=== PATIENT | male | born 1945 | race Caucasian/White ===

== ENCOUNTER 2016-11-25 13:33 | Inpatient (IN) | payer OTHER, MEDICARE ==
[~2016-11-25] VITALS: Ht 177.8 cm; Wt 91.0 kg
[~2016-11-25 13:33] MED LIST: ASPI81TA28 PO; ATV1 PO; CARB25TA12 PO; MULT-506 PO; OXYC-57 PO; OYST500T47 PO; RASA1TAB PO; ROPI2TAB6 PO
[2016-11-25 15:10] LABS: BASO % 0.4 %; BASO ABS # 0.04 K/uL (0-0.2); COMPLETE YES; EOS % 0.5 %; IG% 0.2 %; LYMPH % 14.6 %; MEAN CELL VOLUME 85.7 fL (80-100); MEAN CORPUSCULAR HEMOGLOBIN 30.1 pg (25-34); MEAN CORPUSCULAR HGB CONC 35.1 g/dl (32-36); MONO % 7.9 %; NEUT % 76.4 %; PLATELET COUNT 223 K/uL (130-400); RED BLOOD COUNT 5.02 M/uL (4.7-6.1); WHITE BLOOD COUNT 9.62 K/uL (4.8-10.8)
--- NOTE | 2016-11-25 15:27 | DIAGNOSTIC IMAGING REPORT ---
SINGLE VIEW CHEST CLINICAL HISTORY: Fall. FINDINGS: An AP, portable, upright chest radiograph is compared to study dated 01/19/2014. The examination is degraded by portable technique, patient rotation, and by the patient's head obscuring the right apex. The heart is enlarged and there is atherosclerotic calcification of the thoracic aorta. The pulmonary vasculature is noncongested. Mild emphysema is suspected and chronic interstitial thickening is unchanged. No airspace consolidation, pleural effusion, or pneumothorax is seen. The skeletal structures are osteopenic. The bony thorax is grossly intact. Degenerative change is noted throughout the thoracic spine. IMPRESSION: Cardiomegaly with no acute cardiopulmonary abnormality. Electronically signed by: Tj Troncoso M.D. 11/25/2016 3:26 PM
[2016-11-25 15:29] LABS: BUN/CREATININE RATIO 23.5 (10-20); CREATININE 0.82 mg/dl (0.60-1.40); POTASSIUM 3.6 mmol/L (3.5-5.1)
--- NOTE | 2016-11-25 15:29 | DIAGNOSTIC IMAGING REPORT ---
RIGHT SHOULDER MIN 2 VIEWS ROUTINE CLINICAL HISTORY: Right shoulder pain following fall. COMPARISON: None FINDINGS: This exam was compromised by difficulty with positioning. No acute fracture of the proximal right humerus is identified. There is an equivocal minimally displaced fracture of the coracoid. Alignment is anatomic. There is moderate arthritis. IMPRESSION: Equivocal minimally displaced scapular fracture involving the coracoid process. This may be artifactual. Electronically signed by: Vicente Duran M.D. 11/25/2016 3:27 PM
[2016-11-25 15:44] LABS: THYROID STIMULATING HORMONE 1.06 uIu/ml (0.300-4.500)
--- NOTE | 2016-11-25 15:46 | DIAGNOSTIC IMAGING REPORT ---
RIGHT ANKLE MIN 3 VIEWS ROUTINE CLINICAL HISTORY: Right ankle pain following fall. COMPARISON: None FINDINGS: Alignment of the right ankle is anatomic. No acute fracture is identified. Irregularity of the medial malleolus suggests old injury. There is moderate lateral ankle soft tissue swelling. IMPRESSION: 1. No acute fracture or dislocation of the right ankle. 2. Moderate lateral ankle soft tissue swelling. Electronically signed by: Vicente Duran M.D. 11/25/2016 3:44 PM
[2016-11-25 15:53] LABS: URINE APPEARANCE CLEAR (CLEAR); URINE BILIRUBIN NEG (NEG); URINE COLOR YELLOW; URINE NITRITE NEG (NEG); URINE SPECIFIC GRAVITY 1.023 (1.000-1.030); UROBILINOGEN NEG (NEG)
[2016-11-25 15:55] LABS: MANUAL MICROSCOPIC REQUIRED? NO; REVIEW REQ? NO
--- NOTE | 2016-11-25 16:00 | DIAGNOSTIC IMAGING REPORT ---
CT SCAN OF THE BRAIN WITHOUT IV CONTRAST CLINICAL HISTORY: Trauma. Fall. COMPARISON STUDY: No priors. TECHNIQUE: Unenhanced axial CT scan of the brain is performed from the vertex to the skull base. CT DOSE: 1365.40 mGy.cm FINDINGS: Brain parenchyma: There are age-related involutional changes noting moderate subcortical and periventricular microangiopathic change. There is no hemorrhage, mass effect, or evidence of acute territorial ischemia by CT criteria. Mcclain-white matter is preserved. No extra-axial fluid collection is seen. Ventricles, sulci, cisterns: Prominent secondary to involutional change. Intracranial vasculature: There is atherosclerotic calcification of the cavernous carotid and vertebral arteries. There is mild dolichoectasia of the basilar artery. Calvarium: The skeletal structures are osteopenic. There is no depressed calvarial fracture. Sinuses and mastoids: The visualized paranasal sinuses are clear. The mastoid air cells are well pneumatized. Orbits: The bony orbits are grossly intact. IMPRESSION: There is no hemorrhage, mass effect, or evidence of acute territorial ischemia by CT criteria. Electronically signed by: Tj Troncoso M.D. 11/25/2016 3:58 PM
--- NOTE | 2016-11-25 16:00 | DIAGNOSTIC IMAGING REPORT ---
CT OF THE CERVICAL SPINE CLINICAL HISTORY: Neck pain status post trauma COMPARISON STUDY: No previous studies for comparison. CT DOSE: TECHNIQUE: CT scan of the cervical spine was performed from the skull base to the thoracic inlet. Images are reviewed in the axial, sagittal, and coronal planes. IV contrast was not administered for this examination. FINDINGS: The visualized portions of the lung apices reveal no evidence of pneumothorax. The prevertebral soft tissues are normal. No fractures or subluxations are visualized. There is a cervical levoscoliosis. There are multilevel degenerative changes IMPRESSION: No evidence of acute fracture or traumatic subluxation. Electronically signed by: Rodríguez Watson M.D. 11/25/2016 3:58 PM
[2016-11-25] MEDS ORDERED: CYAN10004 PO (16:01)
[2016-11-25] MEDS ORDERED: GALA4TAB11 PO (16:01)
[2016-11-25] MEDS ORDERED: THIA100T11 PO (16:01)
[2016-11-25] MEDS ORDERED: SERT50TA PO (16:02)
[2016-11-25] MEDS ORDERED: QUET1TAB30 PO (16:03)
[2016-11-25] MEDS ORDERED: ACETAMINOPHEN 325 MG TAB PO PRN (17:30)
[2016-11-25] MEDS ORDERED: AMMONIUM LACTATE 12% LOTION 225 GM BTL EXT PRN (17:30)
[2016-11-25] MEDS ORDERED: ONDANSETRON INJ 2 MG/ML 2 ML VIAL IV PRN (17:30)
[2016-11-25] MEDS ORDERED: LACT1LOT3 EXT (17:30)
--- NOTE | 2016-11-25 18:09 | History and Physical ---
History & Physical Date & Time of Service: Nov 25, 2016 at 17:32 Chief Complaint: Back Pain Primary Care Physician: Zak Barlow M.D. History of Present Illness Source: patient, family (daughter at bedside), clinic records This is a 71 year old male with PMH of Parkinson's variant, possibly progressive supranuclear palsy, Lewy body dementia, depression, and other problems listed below who presents to the ED for multiple falls. Patient's daughter at bedside states patient fell 4x in past 1 week. He fell on 11/19 witnessed by his daughter due to his chair giving out under him and hit the back of his head. He then fell once yesterday and 2x early this morning. Patient unable to describe what happened. Daughter did not witness these falls. Pt ambulates with cane or walker at home. He has been generally weak. After the recent falls he has pain in occipital head, right shoulder, right ankle. No other areas of pain. Daughter notes patient has been awake for past 36 hours. He has been having hallucinations of people in the room frequently during this time, while before this was only occasional. He has been agitated at times. He was having reportedly having suicidal ideations recently but denies this currently. As per his baseline patient has poor short term memory. At baseline he is oriented to person and date but not to place- no change. Patient states he is here because "my body is all screwed up". Daughter states he has been eating well at home but does not drink much fluids. No focal weakness, numbness , facial droop, change in speech- has baseline mumbling speech. Has intention tremor. No recent fever, chills, URI symptoms, chest pain, SOB, GI complaints. He recently finished amoxicillin for UTI on FridayNov 22. Not having urinary complaints over past few days. Seroquel 25 mg HS was recently added approx [address] Reed. Daughter called Dr. Reed today and was advised to present to ER. Past Medical/Surgical History Medical Problems: (1) Depression Status: Chronic (2) History of DVT (deep vein thrombosis) Permanent Comment: provoked by surgery Status: Chronic (3) History of pulmonary embolism Permanent Comment: provoked by surgery Status: Chronic (4) Lewy body dementia Status: Chronic Surgical Problems: (1) H/O colonoscopy Status: Chronic (2) S/P lumbar fusion Status: Chronic Family History Diabetes mellitus SISTER Hypertension MOTHER TIAs MOTHER Social History Smoking Status: Former Smoker (quit 1975) Alcohol Use: none Housing status: lives with family (with and daughter) Allergies Coded Allergies: Pramipexole (Unverified Allergy, Severe, delirium, 11/25/16) No Known Drug Allergy (Verified Allergy, Unknown, ., 02/01/14) Home Medications Scheduled Aspirin (Aspirin Ec), 81 MG PO QAM Carbidopa/Levodopa (Sinemet 25MG/100MG), 1 TAB PO QID Cyanocobalamin (Vitamin B-12 1000 Mcg), 1,000 MCG PO DAILY Galantamine Hydrobromide (Razadyne), 4 MG PO HS Quetiapine Fumarate (Seroquel), 25 MG PO HS Sertraline (Zoloft), 50 MG PO DAILY Thiamine Hcl (Vitamin B-1), 100 MG PO DAILY Scheduled PRN Lactic Acid (Ammonium Lactate) (Amlactin), 1 APPLN EXT BID PRN for DRYNESS Review of Systems Constitutional: + weakness (generalized), No chills, No fever ENT: No nasal symptoms Respiratory: No cough, No shortness of breath Cardiovascular: No chest pain Abdomen: + problem reported (bowel incontinence), No diarrhea, No nausea, No pain, No vomiting Musculoskeletal: + joint pain (right shoulder, right ankle- new. chronic low back pain. ) Genitourinary - Male: No dysuria, No urinary frequency, No urinary urgency Neurologic: + memory loss (chronic), + problem reported (+ headache. + frequent falls. no facial droop, no change in speech. ), + weakness (generalized ), No numbness/tingling Psychiatric: + depression symptoms, + insomnia, + problem reported (agitation on and off, recent suicidal ideation) Hematologic / Lymphatic: + problem reported (bruises easily) Integumentary: + problem reported (healing skin tear to left elbow) Physical Exam Vital Signs Date Time Temp Pulse Resp B/P Pulse Ox O2 Delivery O2 Flow Rate FiO2 11/25/16 16:21 71 16 132/79 96 Room Air 11/25/16 15:32 96 Room Air 11/25/16 15:30 68 16 141/81 97 Room Air 11/25/16 15:06 81 138/82 69 149/76 86 137/83 11/25/16 13:41 36.7 69 16 141/80 96 Room Air 11/25/16 13:39 69 General Appearance: WD/WN, no apparent distress Head: normocephalic, atraumatic Eyes: normal inspection, PERRL, EOMI ENT: hearing grossly normal, pharynx normal Neck: supple Respiratory/Chest: lungs clear, normal breath sounds, no respiratory distress Cardiovascular: regular rate, rhythm, no murmur Abdomen/GI: normal bowel sounds, non tender, soft Extremities/Musculoskelatal: no calf tenderness, no pedal edema, + pertinent finding (+ rigidity of extremities. + painful ROM of right shoulder and right ankle. ) Neurologic/Psych: alert, + pertinent finding (oriented to person and date, mildly disoriented to place (states we are at [facility]), attention is normal, short term memory is poor. has masked facies. eyebrow raise and smile symmetric. tremor with intentional movement. production potter strength 5/5 bilat. generally weak in biliateral legs strenght 2-4/5. ) Skin: normal color, warm/dry, + pertinent finding (scabbed skin tear left elbow. no appreciable rashes or bruises. ) Diagnostics Laboratory Results Results Past 24 Hours Test 11/25/16 14:54 11/25/16 14:56 11/25/16 15:17 Range/Units Bedside Glucose 82 70-99 mg/dl White Blood Count 9.62 4.8-10.8 K/uL Red Blood Count 5.02 4.7-6.1 M/uL Hemoglobin 15.1 14.0-18.0 g/dL Hematocrit 43.0 42-52 % Mean Corpuscular Volume 85.7 80-100 fL Mean Corpuscular Hemoglobin 30.1 25-34 pg Mean Corpuscular Hemoglobin Concent 35.1 32-36 g/dl Platelet Count 223 130-400 K/uL Mean Platelet Volume 10.0 7.4-10.4 fL Neutrophils (%) (Auto) 76.4 % Lymphocytes (%) (Auto) 14.6 % Monocytes (%) (Auto) 7.9 % Eosinophils (%) (Auto) 0.5 % Basophils (%) (Auto) 0.4 % Neutrophils # (Auto) 7.35 1.4-6.5 K/uL Lymphocytes # (Auto) 1.40 1.2-3.4 K/uL Monocytes # (Auto) 0.76 0.11-0.59 K/uL Eosinophils # (Auto) 0.05 0-0.5 K/uL Basophils # (Auto) 0.04 0-0.2 K/uL RDW Standard Deviation 39.2 36.4-46.3 fL RDW Coefficient of Variation 12.5 11.5-14.5 % Immature Granulocyte % (Auto) 0.2 % Immature Granulocyte # (Auto) 0.02 0.00-0.02 K/uL Sodium Level 142 136-145 mmol/L Potassium Level 3.6 3.5-5.1 mmol/L Chloride Level 106 98-107 mmol/L Carbon Dioxide Level 25 21-32 mmol/L Anion Gap 11.0 3-11 mmol/L Blood Urea Nitrogen 19 7-18 mg/dl Creatinine 0.82 0.60-1.40 mg/dl Est Creatinine Clear Calc Drug Dose 92.3 ml/min Estimated GFR () 102.4 Estimated GFR (Non- 88.3 BUN/Creatinine Ratio 23.5 10-20 Random Glucose 78 70-99 mg/dl Calcium Level 9.0 8.5-10.1 mg/dl Total Bilirubin 1.2 0.2-1 mg/dl Direct Bilirubin 0.2 0-0.2 mg/dl Aspartate Amino Transf (AST/SGOT) 32 15-37 U/L Alanine Aminotransferase (ALT/SGPT) 10 12-78 U/L Alkaline Phosphatase 118 45-117 U/L Total Protein 7.2 6.4-8.2 gm/dl Albumin 4.0 3.4-5.0 gm/dl Thyroid Stimulating Hormone (TSH) 1.060 0.300-4.500 uIu/ml Urine Color YELLOW Urine Appearance CLEAR CLEAR Urine pH 5.0 4.5-7.5 Urine Specific [place]in 1.023 1.000-1.030 Urine Protein NEG NEG Urine Glucose (UA) NEG NEG Urine Ketones 1+ NEG Urine Occult Blood NEG NEG Urine Nitrite NEG NEG Urine Bilirubin NEG NEG Urine Urobilinogen NEG NEG Urine Leukocyte Esterase NEG NEG Diagnostic Radiology RIGHT SHOULDER MIN 2 VIEWS ROUTINE CLINICAL HISTORY: Right shoulder pain following fall. COMPARISON: None FINDINGS: This exam was compromised by difficulty with positioning. No acute fracture of the proximal right humerus is identified. There is an equivocal minimally displaced fracture of the coracoid. Alignment is anatomic. There is moderate arthritis. IMPRESSION: Equivocal minimally displaced scapular fracture involving the coracoid process. This may be artifactual. CT SCAN OF THE BRAIN WITHOUT IV CONTRAST CLINICAL HISTORY: Trauma. Fall. COMPARISON STUDY: No priors. TECHNIQUE: Unenhanced axial CT scan of the brain is performed from the vertex to the skull base. CT DOSE: 1365.40 mGy.cm FINDINGS: Brain parenchyma: There are age-related involutional changes noting moderate subcortical and periventricular microangiopathic change. There is no hemorrhage, mass effect, or evidence of acute territorial ischemia by CT criteria. Mcclain-white matter is preserved. No extra-axial fluid collection is seen. Ventricles, sulci, cisterns: Prominent secondary to involutional change. Intracranial vasculature: There is atherosclerotic calcification of the cavernous carotid and vertebral arteries. There is mild dolichoectasia of the basilar artery. Calvarium: The skeletal structures are osteopenic. There is no depressed calvarial fracture. Sinuses and mastoids: The visualized paranasal sinuses are clear. The mastoid air cells are well pneumatized. Orbits: The bony orbits are grossly intact. IMPRESSION: There is no hemorrhage, mass effect, or evidence of acute territorial ischemia by CT criteria. CT OF THE CERVICAL SPINE CLINICAL HISTORY: Neck pain status post trauma COMPARISON STUDY: No previous studies for comparison. CT DOSE: TECHNIQUE: CT scan of the cervical spine was performed from the skull base to the thoracic inlet. Images are reviewed in the axial, sagittal, and coronal planes. IV contrast was not administered for this examination. FINDINGS: The visualized portions of the lung apices reveal no evidence of pneumothorax. The prevertebral soft tissues are normal. No fractures or subluxations are visualized. There is a cervical levoscoliosis. There are multilevel degenerative changes IMPRESSION: No evidence of acute fracture or traumatic subluxation. RIGHT ANKLE MIN 3 VIEWS ROUTINE CLINICAL HISTORY: Right ankle pain following fall. COMPARISON: None FINDINGS: Alignment of the right ankle is anatomic. No acute fracture is identified. Irregularity of the medial malleolus suggests old injury. There is moderate lateral ankle soft tissue swelling. IMPRESSION: 1. No acute fracture or dislocation of the right ankle. 2. Moderate lateral ankle soft tissue swelling. SINGLE VIEW CHEST CLINICAL HISTORY: Fall. FINDINGS: An AP, portable, upright chest radiograph is compared to study dated 01/19/2014. The examination is degraded by portable technique, patient rotation, and by the patient's head obscuring the right apex. The heart is enlarged and there is atherosclerotic calcification of the thoracic aorta. The pulmonary vasculature is noncongested. Mild emphysema is suspected and chronic interstitial thickening is unchanged. No airspace consolidation, pleural effusion, or pneumothorax is seen. The skeletal structures are osteopenic. The bony thorax is grossly intact. Degenerative change is noted throughout the thoracic spine. IMPRESSION: Cardiomegaly with no acute cardiopulmonary abnormality. EKG NSR, no ST or T wave abnormalities, [id number] Impression Assessment and Plan MULTIPLE FALLS Likely mechanical falls due to underlying Parkinsonism Labs are essentially unremarkable; no evidence for infection- CXR- no infiltrate , UA- not infected CT head- no acute findings; CT c-spine- no fx or subluxation, right shoulder x- ray- ? minimally displaced scapular fx involving coracoid process vs. artifactual finding; right ankle x-ray- no fx or dislocation, + moderate lateral soft tissue swelling- will do ice packs Check CT of right shoulder to further assess for scapular fx PT and OT evaluations Fall precautions Consult neurology- Dr. Reed aware DEPRESSION/ HALLUCINATIONS/ AGITATION RECENT SUICIDAL IDEATION One to one sitter On Seroquel, sertraline Consult psychiatry for medication adjustments PARKINSON'S VARIANT Continue Sinemet LEWY BODY DEMENTIA Continue galantamine CODE STATUS Full code- discussed with patient and daughter. Would not want prolonged life support. DVT PROPHYLAXIS Lovenox SQ DISPO Lives at home with / daughter. Daughter expressed interest in placement at Parkinson's unit at [facility]. PT/OT and web content & social media manager consulted. Patient seen in collaboration with Dr. Farfan. Please see his addendum. Attending Addendum: The patient was seen and examined in ER in presence of the Daughter Came in with frequent falls and hallucinations Denies any acute pain,sob O/E No acute distress HEENT-Unremarkable Chest-decreased breath sound bilaterally Heart-regular Abdomen-benign,no masses,bowel sound present Extremities-trace edema bilaterally HOT TOP LINER-minimal tremors of the hands Generally weak and Lethargic Labs and Imaging studies were reviewed R/O right scapular fracture Agree with the assessment and plan Dr Juan Ramon Farfan VTE Prophylaxis VTE Risk Assessment Done? Y/N: Yes Risk Level: High
--- NOTE | 2016-11-25 18:29 | EMERGENCY ROOM VISIT NOTE ---
History Report prepared by Vidhiibheather: Stephany Bee Under the Supervision of: Dr. Bhanu Brown D.O. First contact with patient: 14:15 Chief Complaint: FALL Stated Complaint: BACK PAIN History of Present Illness The patient is a 71 year old male who presents to the Emergency Room with complaints of worsening falls recently. He is accompanied by his son and daughter. They report he has fallen four times in the past two days. Yesterday he fell three times, and then fell again once prior to arrival. The patient has a history of dementia and Parkinson's and his neurological health has been on the decline recently. He admits to some back pain after his recent falls, as well as right shoulder and elbow pain. He notes he does have chronic back pain and has undergone spinal fusion surgery. He just finished Amoxicillin 3 days ago for UTI symptoms. The patient denies any headache, change in vision, fevers , chest pain, shortness of breath, nausea, vomiting, diarrhea, pain with urination, and melena. His daughter reports last week "he had a very bad day" and became very angry with her Mother, the patient's . She also states the patient "sees things all of the time". She reports he sees people who are not there every single day. The patient denies any current suicidal or homicidal ideation. 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 A total of 10 systems reviewed and were otherwise negative. Past Medical & Surgical Medical Problems: (1) Dementia (2) Depression (3) Falls (4) Hallucinations (5) History of DVT (deep vein thrombosis) (6) History of pulmonary embolism (7) Lewy body dementia (8) Parkinson disease Surgical Problems: (1) H/O colonoscopy (2) S/P lumbar fusion Social History Smoking Status: Former Smoker Drug Use: none Marital Status: Housing Status: lives with family Occupation Status: retired Current/Historical Medications Scheduled Aspirin (Aspirin Ec), 81 MG PO QAM Carbidopa/Levodopa (Sinemet 25MG/100MG), 1 TAB PO QID Cyanocobalamin (Vitamin B-12 1000 Mcg), 1,000 MCG PO DAILY Galantamine Hydrobromide (Razadyne), 4 MG PO HS Quetiapine Fumarate (Seroquel), 25 MG PO HS Sertraline (Zoloft), 50 MG PO DAILY Thiamine Hcl (Vitamin B-1), 100 MG PO DAILY Scheduled PRN Lactic Acid (Ammonium Lactate) (Amlactin), 1 APPLN EXT BID PRN for DRYNESS Allergies Coded Allergies: Pramipexole (Unverified Allergy, Severe, delirium, 11/25/16) No Known Drug Allergy (Verified Allergy, Unknown, ., 02/01/14) Physical Exam Vital Signs Date Time Temp Pulse Resp B/P Pulse Ox O2 Delivery O2 Flow Rate FiO2 11/25/16 16:21 71 16 132/79 96 Room Air 11/25/16 15:32 96 Room Air 11/25/16 15:30 68 16 141/81 97 Room Air 11/25/16 15:06 81 138/82 69 149/76 86 137/83 11/25/16 13:41 36.7 69 16 141/80 96 Room Air 11/25/16 13:39 69 Physical Exam GENERAL: Patient is alert, chronically ill-appearing, disheveled, well nourished , no acute distress, non-toxic EYE EXAM: normal conjunctiva, PERRL and EOM's intact OROPHARYNX: no exudate, no erythema, lips, buccal mucosa, and tongue normal and mucous membranes are moist NECK: supple, no nuchal rigidity, no adenopathy, non-tender LUNGS: Clear to auscultation. Normal chest wall mechanics HEART: no murmurs, S1 normal and S2 normal ABDOMEN: abdomen soft, non-tender, normo-active bowel sounds, no masses, no rebound or guarding. BACK: Back is symmetrical on inspection and there is no deformity, no midline tenderness, no CVA tenderness. CHEST: Stable to compression anteriorly and posteriorly. SKIN: no rashes and no bruising UPPER EXTREMITIES: Mild tenderness over the right shoulder, without bruising, skin is intact, minimal full active and passive ROM of bilateral wrists, elbows and shoulders. LOWER EXTREMITIES: Rigidity with minimal motion in hips, knees and ankles. No pitting edema. NEURO EXAM: Patient is alert, soft spoken, slow to respond, no obvious tremor, denies SI or HI. Medical Decision & Procedures ER Provider Diagnostic Interpretation: These CT scans were reviewed and interpreted by the radiologist and reviewed by myself. CT OF THE CERVICAL SPINE IMPRESSION: No evidence of acute fracture or traumatic subluxation. Electronically signed by: Rodríguez Watson M.D. 11/25/2016 3:[address] SCAN OF THE BRAIN WITHOUT IV CONTRAST IMPRESSION: There is no hemorrhage, mass effect, or evidence of acute territorial ischemia by CT criteria. Electronically signed by: Tj Troncoso M.D. 11/25/2016 3:58 PM These X-Rays were reviewed and interpreted by myself and the radiologist. SINGLE VIEW CHEST IMPRESSION: Cardiomegaly with no acute cardiopulmonary abnormality. Electronically signed by: Tj Troncoso M.D. 11/25/2016 3:26 PM RIGHT ANKLE MIN 3 VIEWS ROUTINE IMPRESSION: 1. No acute fracture or dislocation of the right ankle. 2. Moderate lateral ankle soft tissue swelling. Electronically signed by: Vicente Duran M.D. 11/25/2016 3:44 PM RIGHT SHOULDER MIN 2 VIEWS ROUTINE IMPRESSION: Equivocal minimally displaced scapular fracture involving the coracoid process. This may be artifactual. Electronically signed by: Vicente Duran M.D. 11/25/2016 3:27 PM Laboratory Results 11/25/16 14:56 Red Blood Count 5.02, Mean Corpuscular Volume 85.7, Mean Corpuscular Hemoglobin 30.1, Mean Corpuscular Hemoglobin Concent 35.1, Mean Platelet Volume 10.0, Neutrophils (%) (Auto) 76.4, Lymphocytes (%) (Auto) 14.6, Monocytes (%) (Auto) 7.9, Eosinophils (%) (Auto) 0.5, Basophils (%) (Auto) 0.4, Neutrophils # (Auto) 7.35, Lymphocytes # (Auto) 1.40, Monocytes # (Auto) 0.76, Eosinophils # (Auto) 0.05, Basophils # (Auto) 0.04 11/25/16 14:56 Test 11/25/16 14:54 11/25/16 14:56 11/25/16 15:17 Bedside Glucose 82 mg/dl (70-99) White Blood Count 9.62 K/uL (4.8-10.8) Red Blood Count 5.02 M/uL (4.7-6.1) Hemoglobin 15.1 g/dL (14.0-18.0) Hematocrit 43.0 % (42-52) Mean Corpuscular Volume 85.7 fL (80-100) Mean Corpuscular Hemoglobin 30.1 pg (25-34) Mean Corpuscular Hemoglobin Concent 35.1 g/dl (32-36) Platelet Count 223 K/uL (130-400) Mean Platelet Volume 10.0 fL (7.4-10.4) Neutrophils (%) (Auto) 76.4 % Lymphocytes (%) (Auto) 14.6 % Monocytes (%) (Auto) 7.9 % Eosinophils (%) (Auto) 0.5 % Basophils (%) (Auto) 0.4 % Neutrophils # (Auto) 7.35 K/uL (1.4-6.5) Lymphocytes # (Auto) 1.40 K/uL (1.2-3.4) Monocytes # (Auto) 0.76 K/uL (0.11-0.59) Eosinophils # (Auto) 0.05 K/uL (0-0.5) Basophils # (Auto) 0.04 K/uL (0-0.2) RDW Standard Deviation 39.2 fL (36.4-46.3) RDW Coefficient of Variation 12.5 % (11.5-14.5) Immature Granulocyte % (Auto) 0.2 % Immature Granulocyte # (Auto) 0.02 K/uL (0.00-0.02) Anion Gap 11.0 mmol/L (3-11) Est Creatinine Clear Calc Drug Dose 92.3 ml/min Estimated GFR () 102.4 Estimated GFR (Non- 88.3 BUN/Creatinine Ratio 23.5 (10-20) Calcium Level 9.0 mg/dl (8.5-10.1) Total Bilirubin 1.2 mg/dl (0.2-1) Direct Bilirubin 0.2 mg/dl (0-0.2) Aspartate Amino Transf (AST/SGOT) 32 U/L (15-37) Alanine Aminotransferase (ALT/SGPT) 10 U/L (12-78) Alkaline Phosphatase 118 U/L (45-117) Total Protein 7.2 gm/dl (6.4-8.2) Albumin 4.0 gm/dl (3.4-5.0) Thyroid Stimulating Hormone (TSH) 1.060 uIu/ml (0.300-4.500) Urine Color YELLOW Urine Appearance CLEAR (CLEAR) Urine pH 5.0 (4.5-7.5) Urine Specific [place] 1.023 (1.000-1.030) Urine Protein NEG (NEG) Urine Glucose (UA) NEG (NEG) Urine Ketones 1+ (NEG) Urine Occult Blood NEG (NEG) Urine Nitrite NEG (NEG) Urine Bilirubin NEG (NEG) Urine Urobilinogen NEG (NEG) Urine Leukocyte Esterase NEG (NEG) Laboratory results per my review. ECG Indication: back/shoulder pain Rate (beats per minute): 67 Rhythm: sinus rhythm Findings: left axis deviation, no ectopy ED Course ED COURSE: Vital signs were reviewed and showed normal vital signs. The patients medical record was reviewed The above diagnostic studies were performed and reviewed. ED treatments and interventions as stated above. 1424: The patient was evaluated in room C2. A complete history and physical examination was performed. 1623: I discussed the patient's case with Kalpana Turner PA-C, [facility] Hospitalist. The patient will be further evaluated. 1630: Upon reevaluation, the patient is resting comfortably. I discussed my findings with the patient and he understands and agrees with the treatment plan. Based on the patients age, coexisting illnesses, exam and lab findings the decision to treat as an inpatient was made. The patient remained stable while under my care. The patient will be evaluated for further management. Medical Decision Differential Diagnosis includes but is not limited to dehydration, stroke, anemia, hypoglycemia, hyponatremia, hypernatremia, urinary tract infection, pneumonia, bronchitis, sepsis, gastroenteritis, additional abdominal pathology, metabolic abnormalities and infections. Patient is a 71-year-old male who presents the ER for multiple falls referred in by neurology. He is a history of Parkinson's disease and has made some suicidal ideations this past week. Patient denies any suicidal or homicidal ideations. CBC along with BMP, LFTs, bilirubin and TSH are unremarkable. Patient does have rigidity on exam but is otherwise neurologically intact. CT head was negative. CT of the cervical spine is unremarkable. X-rays of the right shoulder show a coracoid process fracture. Patient family were updated bedside. Family feels as though they can't take care of him at home. I do favor he'll benefit from rehabilitation. Patient was evaluated by the hospitalist service and will be worked up as an inpatient for his ambulatory dysfunction. Consults Time Called: 1620 Consulting Physician: Kalpana Turner PA-C, [facility] Returned Call: 1623 I discussed the patient's case with Kalpana Turner PA-C, [facility]. The patient will be further evaluated. Impression Primary Impression: Weakness Additional Impressions: Recurrent falls, Ambulatory dysfunction Scribe Attestation The scribe's documentation has been prepared under my direction and personally reviewed by me in its entirety. I confirm that the note above accurately reflects all work, treatment, procedures, and medical decision making performed by me. Departure Information Dispostion Being Evaluated By Hospitalist Referrals Zee Ackerman (PCP) Patient Instructions A Signature Page, My [facility]
[2016-11-25 18:30] VITALS: O2SAT 97; Ht 177.8 cm; Wt 91.0 kg
[2016-11-25 18:33] VITALS: BP 133/78; PULSE 61; TEMP 36.2; O2SAT 97
[2016-11-25] MEDS ORDERED: IV FLUIDS COMPLETED PRN (19:15)
[2016-11-25] MEDS: ENOXAPARIN 40 MG/0.4 ML SYR SQ SCH (20:38)
[2016-11-25] MEDS: QUETIAPINE FUMARATE 25 MG TAB PO SCH (20:39)
[2016-11-25] MEDS: CARBIDOPA/LEVODOPA 25/100MG TAB PO SCH (20:40)
[2016-11-25] MEDS ORDERED: PNEUMOCOCCAL ADMINISTRATION CHARGE ONE (21:00)
[2016-11-25] MEDS ORDERED: PNEUMOCOCCAL POLYSACCHARIDES 25 MCG/0.5 ML VIAL/SYR IM. ONE (21:00)
[2016-11-25] MEDS ORDERED: GALANTAMINE HYDROBROMIDE 4 MG TAB PO SCH (21:00)
[2016-11-25] MEDS ORDERED: INFLUENZA ADMINISTRATION CHARGE ONE (21:00)
[2016-11-25] MEDS ORDERED: INFLUENZA VIRUS QUAD VACCINE 0.5 ML SYR IM. ONE (21:00)
--- NOTE | 2016-11-25 21:32 | DIAGNOSTIC IMAGING REPORT ---
CT OF THE RIGHT SCAPULA/SHOULDER CT DOSE: 1289.80 mGy.cm HISTORY: Abnormal shoulder series possible right scapular fracture on x-ray Right TECHNIQUE: Multiaxial CT images of the right shoulder were performed and reformatted in the sagittal and coronal plane without the use of contrast. COMPARISON: None. FINDINGS: Moderate generalized degenerative change. No evidence for acute fracture or dislocation. Plain film findings appear to be artifactual. IMPRESSION: Moderate degenerative change. No acute bony abnormality. Routine film finding appears to be secondary to overlap artifact. Electronically signed by: Russell Hollingsworth M.D. 11/25/2016 9:30 PM
[2016-11-25 22:51] VITALS: BP 127/68; PULSE 91; TEMP 36.3; O2SAT 92
[2016-11-26 07:37] LABS: HEMATOCRIT 39.1 % (42-52); MEAN CELL VOLUME 87.5 fL (80-100); MEAN CORPUSCULAR HEMOGLOBIN 29.8 pg (25-34); MEAN PLATELET VOLUME 10.5 fL (7.4-10.4); PLATELET COUNT 200 K/uL (130-400); RED BLOOD COUNT 4.47 M/uL (4.7-6.1); WHITE BLOOD COUNT 5.92 K/uL (4.8-10.8)
[2016-11-26 08:05] LABS: BUN/CREATININE RATIO 23.8 (10-20); CALCIUM 8.6 mg/dl (8.5-10.1); CREATININE 0.86 mg/dl (0.60-1.40); MAGNESIUM 2.2 mg/dl (1.8-2.4); POTASSIUM 3.7 mmol/L (3.5-5.1)
[2016-11-26 08:30] VITALS: BP 143/83; PULSE 59; TEMP 36.9; O2SAT 95
[2016-11-26] MEDS: ASPIRIN 81 MG ECTAB PO SCH (09:23)
[2016-11-26] MEDS: CYANOCOBALAMIN 500 MCG TAB (VIT B-12) PO SCH (09:24)
[2016-11-26] MEDS: CARBIDOPA/LEVODOPA 25/100MG TAB PO SCH ×3 (09:24→22:40)
[2016-11-26] MEDS: SERTRALINE HCL 50 MG TAB PO SCH (09:24)
[2016-11-26] MEDS: THIAMINE HCL 100 MG TAB PO SCH (09:24)
--- NOTE | 2016-11-26 13:26 | Progress Note ---
Medicine Progress Note Date & Time of Visit: Nov 26, 2016 at 13:05. Subjective Pt was seen and examined Sitting in chair comfortable with 1 to 1 sitter Pt said that he feels good He did not have any hallucination and psychosis behavior denies any chest pain, palpitation, dizziness and sob Objective Last 8 Hrs Date Time Temp Pulse Resp B/P Pulse Ox O2 Delivery O2 Flow Rate FiO2 11/26/16 08:30 Room Air 11/26/16 08:30 36.9 59 20 143/83 95 Room Air Physical Exam: General- No acute distress, very pleasant Head- atraumatic Eyes- PERRL, EOMI ENT- oropharynx clear Neck- supple, no JVD Lungs- clear to auscultation and percussion Heart- regular rhythm; no murmur Abdomen- normal bowel sounds, soft Extremities- no calf tenderness Neuro- alert, oriented, PERRL Skin- warm & dry Laboratory Results: Last 24 Hours Test 11/25/16 14:54 11/25/16 14:56 11/25/16 15:17 11/26/16 06:32 Bedside Glucose 82 mg/dl White Blood Count 9.62 K/uL 5.92 K/uL Red Blood Count 5.02 M/uL 4.47 M/uL Hemoglobin 15.1 g/dL 13.3 g/dL Hematocrit 43.0 % 39.1 % Mean Corpuscular Volume 85.7 fL 87.5 fL Mean Corpuscular Hemoglobin 30.1 pg 29.8 pg Mean Corpuscular Hemoglobin Concent 35.1 g/dl 34.0 g/dl Platelet Count 223 K/uL 200 K/uL Mean Platelet Volume 10.0 fL 10.5 fL Neutrophils (%) (Auto) 76.4 % Lymphocytes (%) (Auto) 14.6 % Monocytes (%) (Auto) 7.9 % Eosinophils (%) (Auto) 0.5 % Basophils (%) (Auto) 0.4 % Neutrophils # (Auto) 7.35 K/uL Lymphocytes # (Auto) 1.40 K/uL Monocytes # (Auto) 0.76 K/uL Eosinophils # (Auto) 0.05 K/uL Basophils # (Auto) 0.04 K/uL RDW Standard Deviation 39.2 fL 40.9 fL RDW Coefficient of Variation 12.5 % 12.7 % Immature Granulocyte % (Auto) 0.2 % Immature Granulocyte # (Auto) 0.02 K/uL Sodium Level 142 mmol/L 143 mmol/L Potassium Level 3.6 mmol/L 3.7 mmol/L Chloride Level 106 mmol/L 107 mmol/L Carbon Dioxide Level 25 mmol/L 28 mmol/L Anion Gap 11.0 mmol/L 8.0 mmol/L Blood Urea Nitrogen 19 mg/dl 20 mg/dl Creatinine 0.82 mg/dl 0.86 mg/dl Est Creatinine Clear Calc Drug Dose 92.3 ml/min 88.1 ml/min Estimated GFR () 102.4 100.4 Estimated GFR (Non- 88.3 86.6 BUN/Creatinine Ratio 23.5 23.8 Random Glucose 78 mg/dl 87 mg/dl Calcium Level 9.0 mg/dl 8.6 mg/dl Total Bilirubin 1.2 mg/dl Direct Bilirubin 0.2 mg/dl Aspartate Amino Transf (AST/SGOT) 32 U/L Alanine Aminotransferase (ALT/SGPT) 10 U/L Alkaline Phosphatase 118 U/L Total Protein 7.2 gm/dl Albumin 4.0 gm/dl Thyroid Stimulating Hormone (TSH) 1.060 uIu/ml Urine Color YELLOW Urine Appearance CLEAR Urine pH 5.0 Urine Specific [place] 1.023 Urine Protein NEG Urine Glucose (UA) NEG Urine Ketones 1+ Urine Occult Blood NEG Urine Nitrite NEG Urine Bilirubin NEG Urine Urobilinogen NEG Urine Leukocyte Esterase NEG Magnesium Level 2.2 mg/dl Assessment & Plan MULTIPLE FALLS Likely mechanical falls due to underlying Parkinsonism CT head- negative CT of right shoulder showed no moderate degenerative change. No acute bony abnormality Continue PT and OT evaluation Fall precautions DEPRESSION/ HALLUCINATIONS/ AGITATION RECENT SUICIDAL IDEATION Continue One to one sitter On Seroquel, sertraline Case discussed with Psychiatrist INSULATION INSPECTOR, will follow recommendation PARKINSON'S VARIANT Continue Sinemet Neuro Consulted LEWY BODY DEMENTIA Continue galantamine CODE STATUS Full code- Would not want prolonged life support. DVT PROPHYLAXIS Lovenox SQ DISPO Lives at home with / daughter. Daughter expressed interest in placement at Parkinson's unit at [facility]. PT/OT and geriatric social work professor consulted. will talk to outsole caser for possible rehab Consultants: psych neuro PT/OT Current Inpatient Medications: Current Inpatient Medications Medications (Trade) Dose Ordered Sig/Carlotta Route Start Time Stop Time Status Last Admin Dose Admin Acetaminophen (Tylenol Tab) 650 mg Q4H PRN PO 1/2/17 17:30 12/25/16 17:29 Ondansetron HCl (Zofran Inj) 4 mg Q6H PRN IV 11/25/16 17:30 12/25/16 17:29 Aspirin (Ecotrin Tab) 81 mg QAM PO 11/26/16 09:00 12/26/16 08:59 11/26/16 09:23 81 MG Carbidopa/Levodopa (Sinemet 25/ 100MG Tab) 1 tab QID PO 11/25/16 21:00 12/25/16 20:59 11/26/16 12:57 1 TAB Cyanocobalamin (Vitamin B-12 Tab) 1,000 mcg DAILY PO 11/26/16 09:00 12/26/16 08:59 11/26/16 09:24 1,000 MCG Galantamine Hydrobromide (Razadyne Tab) 4 mg HS PO 11/25/16 21:00 12/25/16 20:59 11/25/16 20:39 4 MG Ammonium Lactate (Lac-Hydrin) 1 appl BID PRN EXT 11/25/16 17:30 12/25/16 17:29 Quetiapine Fumarate (seroQUEL TAB) 25 mg HS PO 11/25/16 21:00 12/25/16 20:59 11/25/16 20:39 25 MG Sertraline HCl (Zoloft Tab) 50 mg DAILY PO 11/26/16 09:00 12/26/16 08:59 11/26/16 09:24 50 MG Thiamine HCl (Vitamin B-1 Tab) 100 mg DAILY PO 11/26/16 09:00 12/26/16 08:59 11/26/16 09:24 100 MG Enoxaparin Sodium (Lovenox Inj) 40 mg DAILY@2000 SQ 11/25/16 20:00 12/25/16 19:59 11/25/16 20:38 40 MG Miscellaneous (Iv Fluids Completed) 1 ea PRN PRN N/A 11/25/16 19:15 11/25/17 19:14
--- NOTE | 2016-11-26 14:27 | CONSULTATION REPORT ---
DATE OF CONSULTATION: 11/26/2016 DATE OF CONSULTATION: 11/26/2016. IDENTIFYING DATA: Reno Bush is a 71-year-old gentleman from [place], [place], admitted to the medical floor due to recent history of falls. We are consulted to evaluate hallucinations, recent suicidal ideation and agitation. Information is gathered from the electronic medical record, and the patient, and considered to be reliable. CHIEF COMPLAINT: "I fell." HISTORY OF PRESENT ILLNESS: Reno Bush is a 71-year-old gentleman with known Lewy body dementia, currently treated by Dr. Reed. 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 He is a retired gentleman who has experienced at least 4 falls since 11/19/2016. The first was mechanical and witnessed. The other 3 were unwitnessed. According to the Emergency Room notes, the patient has just finished a course of amoxicillin 3 days prior to admission for UTI symptoms. It was also reported at that time that his daughter said he had a very bad day and he became angry with his and he was also hallucinating. At the time I see the patient, he is sitting in a bedside chair, finishing his lunch. He is alert and cooperative with the interview. There is significant latency to his responses. He sits in a chair with a somewhat kyphotic posture. He indicates that his mood is okay today. He admits that he has made suicidal statements in the past, but says "I have done this all my life" and does not really mean that he wants to end his life. 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 He had previously reported to the liaison nurse that he felt depressed, feeling that his family does not want him to go outside and that was very limiting for him. He indicates that his sleep has been good up until this week when he has been struggling. He says he has not slept hardly at all in the last 3 days, although said she slept most of the morning here in the hospital. He says his appetite is generally good. He does experience some anxiety, specifically when he becomes disoriented and does not know where he is or how he got here. He admits that he also experiences hallucinations, both of the auditory and visual kind. He says that he sees people and animals and hears their voices. The daughter's statements from the Emergency Room indicates that this is not a daily occurrence. The patient cannot recall if he has hallucinated since being in the hospital. Apparently Dr. Reed started him on Seroquel 25 mg at bedtime approximately 3 weeks ago. The patient has poor memory for medications and timing and is not sure if this medication has had any effect on him at all. In terms of his falls, he denies feeling dizzy or having any room spinning experiences. He suspects that these were mechanical in nature as was the first fall. CURRENT MEDICATIONS: 1. Aspirin 81 mg daily. 2. Vitamin B12 1000 mcg daily. 3. Zoloft 50 mg daily. 4. Thiamine 100 mg daily. 5. Sinemet 25/100 one tab 4 times daily. 6. Galantamine hydrobromide 4 mg at bedtime. 7. Seroquel 25 mg at bedtime. 8. Lovenox daily. PAST PSYCHIATRIC HISTORY: The patient endorses having been depressed and having hallucinations but does not see psychiatric providers. He has never made a suicide attempt. There is no evidence of violence to self or others in the last 6 months. ACCESS TO GUNS: Denies. ALLERGIES: Pramipexole -- delirium. PAST MEDICAL HISTORY: 1. Parkinson's disease. 2. ? progressive supranuclear palsy. 3. History of DVTs. 4. Lewy body dementia. 5. Arthritis. 6. Tobacco use -- former smoker, having quit in 1975. FAMILY HISTORY: Denies for psychiatric issues, substance use or suicide. There is positive family history for diabetes, hypertension, and TIAs in his mother. SUBSTANCE ABUSE HISTORY: The patient endorses that he enjoyed drinking beer, but stopped drinking it altogether at one point on the advice from his neurologist. PERSONAL HISTORY: The patient is . He has a son and a daughter. 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 He lives with his . He is of the Judaism ja. Psychological trauma history is denied. MENTAL STATUS EXAMINATION: This 71-year-old gentleman who looks somewhat older than his stated age. He is sitting with a stooped posture in the bedside chair, finishing his lunch. He makes minimal but appropriate eye contact, with his posture having his eyes focused downward. Motor behavior is slowed but no abnormal muscle movements and specifically no evidence of tremors at rest. Speech is slow with significant latency at times to his responses. Affect is flat. Mood had been reported previously as being depressed. Thought process is organized and goal directed. He endorses visual and auditory hallucinations. He admits to making suicidal statements, but he denies any plan or intent. He denies homicidal ideation. Today, the patient is fully oriented. He is able to spell the word world forward and backward. His fund of knowledge is relatively intact. Intelligence is estimated to be average. Insight and judgment are fair. VITAL SIGNS: Temp 36.9, pulse 59, respirations 20, blood pressure 143/83, pulse ox 95% on room air. LABORATORIES: 1. CBC -- notable for low RBCs 4.47, hemoglobin and hematocrit low at 13.3 and 39.1, MPV elevated at 10.5. 2. Chem profile -- notable for BUN 20, BUN-creatinine ratio 23.8. 3. TSH -- within normal limits at 1.060. 4. Urinalysis -- positive only for 1+ ketones. PERTINENT IMAGING: Head CT -- there is no hemorrhage, mass effect, or evidence of acute territorial ischemia. REVIEW OF SYSTEMS: Positive for complaints of impaired sleep x3 days, depression, short-term memory loss. PHYSICAL EXAMINATION: As per BHUPINDER Gonzalez. IMPRESSION: A 71-year-old gentleman admitted to the hospital with recent falls in the context of Parkinson's disease, Lewy body dementia and arthritis. I am uncertain if there is a correlation between the addition of Seroquel at bedtime and his falls. I have asked nursing staff to get a set of orthostatic blood pressures. He has insight into the fact that he has poor short-term recall and also that he is having hallucinations. There is a new medicine on the market, Nuplazid which is specifically for hallucinations in Parkinson's disease. This is not something that I want to start here in the hospital as this would require some foot work in terms of preauthorization and seeing if it is affordable. I would like to hear what Dr. Reed has to say as she may have already considered this medication as an outpatient. In terms of his mood, he is only on 50 mg of Zoloft and this could conceivably be increased to 100 mg, although it is unclear to me how long he has been on this dose. I have left a message with his daughter, Tamie to inquire further as he says she knows most about his medications. He denies any acute suicidality and says that he makes those statements as a matter of course chronically and does not mean that he is going to end his life. Certainly, we have to be careful using atypical antipsychotics in somebody with Parkinson's disease as in terms of his dopamine, we are working against one another. I will defer any medication recommendations at this time until Dr. Reed has weighed in as she knows him better from her outpatient practice. DIAGNOSES: 1. 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 2. Medical conditions as above. PLAN: Has been reviewed with Dr. Martha Restrepo: 1. Depression -- could conceivably increase Zoloft to 100 mg daily, although I do not know at this time how long he has been on his current dose. I left a message with his daughter, Tamie for further information and will wait for Dr. Reed to consult. 2. Parkinson's disease with hallucinations -- new medication on the market, Nuplazid, may be helpful, but would require precert to determine whether or not it is affordable to the patient. Again, this may have been considered by Dr. Reed who has not yet been in to complete the consult. For now, would continue all of his medications at outpatient dosing. We thank you for allowing us to participate in this man's care.
[2016-11-26 15:48] VITALS: BP 129/69; PULSE 44; TEMP 36.6; O2SAT 97
--- NOTE | 2016-11-26 15:52 | Neurology Consultation ---
Neurology Consultation Date of Consultation: Nov 26, 2016. Attending Physician: Boris Hammond M.D. Primary Care Physician: Zak Barlow M.D. Reason for Consultation: falls, hallucinations, agitation History of Present Illness Source: patient Reno is a 71 year old male with PMH of Parkinson, progressive supranuclear palsy, Lewy body dementia, depression. He presented to the ED after multiple falls. His daughter had reported he had 4 falls in 1 week. His daughter witness a fall according to chart when a chair gave out on him and hit his head. Patient does not know why his is here and the daughter is on in the room at this time. He does use a walker and cane at home. Daughter states he has been having hallucinations of people in the room frequently during this time, while before this was only occasional and periods of agitation. Daughter states he has been eating well at home but does not drink much fluids. denies CP , SOB, abdominal pain, headache.+ back pain Past Medical/Surgical History Medical Problems: (1) Ambulatory dysfunction Status: Acute (2) Recurrent falls Status: Acute (3) Weakness Status: Acute Social History Alcohol Use: none Drug Use: none Marital Status: Housing Status: lives with family Occupation Status: retired Allergies Coded Allergies: Pramipexole (Unverified Allergy, Severe, delirium, 11/25/16) No Known Drug Allergy (Verified Allergy, Unknown, ., 02/01/14) Current Inpatient Medications Current Inpatient Medications Medications (Trade) Dose Ordered Sig/Carlotta Route Start Time Stop Time Status Last Admin Dose Admin Acetaminophen (Tylenol Tab) 650 mg Q4H PRN PO 11/25/16 17:30 12/25/16 17:29 Ondansetron HCl (Zofran Inj) 4 mg Q6H PRN IV 11/25/16 17:30 12/25/16 17:29 Aspirin (Ecotrin Tab) 81 mg QAM PO 11/26/16 09:00 12/26/16 08:59 11/26/16 09:23 81 MG Carbidopa/Levodopa (Sinemet 25/ 100MG Tab) 1 tab QID PO 11/25/16 21:00 12/25/16 20:59 11/26/16 12:57 1 TAB Cyanocobalamin (Vitamin B-12 Tab) 1,000 mcg DAILY PO 11/26/16 09:00 12/26/16 08:59 11/26/16 09:24 1,000 MCG Galantamine Hydrobromide (Razadyne Tab) 4 mg HS PO 11/25/16 21:00 12/25/16 20:59 11/25/16 20:39 4 MG Ammonium Lactate (Lac-Hydrin) 1 appl BID PRN EXT 11/25/16 17:30 12/25/16 17:29 Quetiapine Fumarate (seroQUEL TAB) 25 mg HS PO 11/25/16 21:00 12/25/16 20:59 11/25/16 20:39 25 MG Sertraline HCl (Zoloft Tab) 50 mg DAILY PO 11/26/16 09:00 12/26/16 08:59 11/26/16 09:24 50 MG Thiamine HCl (Vitamin B-1 Tab) 100 mg DAILY PO 11/26/16 09:00 12/26/16 08:59 11/26/16 09:24 100 MG Enoxaparin Sodium (Lovenox Inj) 40 mg DAILY@2000 SQ 11/25/16 20:00 12/25/16 19:59 11/25/16 20:38 40 MG Miscellaneous (Iv Fluids Completed) 1 ea PRN PRN N/A 11/25/16 19:15 11/25/17 19:14 Physical Exam Vital Signs (Past 24 Hrs): Date Time Temp Pulse Resp B/P Pulse Ox O2 Delivery O2 Flow Rate FiO2 11/26/16 08:30 Room Air 11/26/16 08:30 36.9 59 20 143/83 95 Room Air 11/25/16 22:51 36.3 91 18 127/68 92 Room Air 11/25/16 18:33 36.2 61 18 133/78 97 Room Air 11/25/16 18:30 97 Room Air 11/25/16 18:03 66 16 128/72 96 11/25/16 16:21 71 16 132/79 96 Room Air 11/25/16 15:32 96 Room Air 11/25/16 15:30 68 16 141/81 97 Room Air Physical Exam: Constitutional: appearance nourished, does not want to open eyes when addressed his name but then when specifically asked to open his eyes he does Ears, Nose, Mouth and Throat: mucous membranes moist, no injection and skin normal, eyes normal Cardiovascular: normal S-1 and S-2 and regular rate and rhythm Respiratory: clear to auscultation (CTA) and no rales, rhonchi or wheeze Musculoskeletal: no peripheral edema Skin: no stigmata of neurocutaneous disease noted and normal and intact Eyes: extraocular muscles intact (EOMI) and pupils equal, round and reactive to light (PERRL) NEUROLOGIC EXAMINATION: Mental status: Alert and interactive , identified pen and writing with it, cell phone make calls, but will not say no if's ands or buts Oriented states he knows where he is but will not state place, states it is 2017 (he states he memorized that) Oriented to person Speech fluent with no evidence of aphasia Cranial Nerves smile and eye brow raise symmetric, tongue midline Reflexes: Deep tendon reflexes were symmetrical and graded 2/5. Plantar responses were neutral . Sensory: no sensory deficits, to vibration or cool touch Coordination: finger to nose without bi pass, resting tremor bilaterally R>L cogwheeling bilaterally Gait/Stance: lying in bed, standing with full assist unable to move LE without prompting Motor: Negative for pronator drift of out stretched arms with eyes closed. Strength: hand sheet taker biceps triceps 5/5 bilaterally, hip flex plantar flex ext bilaterally 5/5 Laboratory Results Past 24 Hours: 11/26/16 06:32 11/26/16 06:32 Test 11/26/16 06:32 Red Blood Count 4.47 M/uL (4.7-6.1) Mean Corpuscular Volume 87.5 fL (80-100) Mean Corpuscular Hemoglobin 29.8 pg (25-34) Mean Corpuscular Hemoglobin Concent 34.0 g/dl (32-36) RDW Standard Deviation 40.9 fL (36.4-46.3) RDW Coefficient of Variation 12.7 % (11.5-14.5) Mean Platelet Volume 10.5 fL (7.4-10.4) Anion Gap 8.0 mmol/L (3-11) Est Creatinine Clear Calc Drug Dose 88.1 ml/min Estimated GFR () 100.4 Estimated GFR (Non- 86.6 BUN/Creatinine Ratio 23.8 (10-20) Calcium Level 8.6 mg/dl (8.5-10.1) Magnesium Level 2.2 mg/dl (1.8-2.4) Imaging CT head-There is no hemorrhage, mass effect, or evidence of acute territorial ischemia by CT criteria. Shoulder xray- Equivocal minimally displaced scapular fracture involving the coracoid process. This may be artifactual CT shoulder- Moderate degenerative change. No acute bony abnormality. Routine film finding appears to be secondary to overlap artifact. Impression 71 year old male progressive confusion, falls and hallucinations Plan 1. currently on Sinemet 25/100 mg QID- will increase to 1 1/2 tablets QID 2. Seroquel 25 mg was started as outpatient and may cause drowsiness 3. Razadyne 4 mg hs - unsure when this was started but can potentially cause dizziness, bradycardia, weight loss, syncope-will stop 4. orthostatic blood pressure have been ordered 5. no infectious source of change in MS found 6. PT/OT for discharge needs 7. psychiatry for behavior and thought issues- getting up at night ? if should be moved to an AM med will defer to psychiatry 8. fall precautions PT seen and examined and spoke with daughter. Pt appears undertreated but has not had good response to meds given parkinson's variant. Cautiously increase sinemet dose. Dc Razadyne for reasons above including wt loss, loose stool. BECCA Reed MD 9. 1:1 only to observe behavior issues 10. daughter reports she is walking out of the house. planning to obtain door alarms to prevent I have seen and discussed above patient with Dr Anne-Marie Reed, neurology BECCA Reed MD
[2016-11-26 18:24] VITALS: BP 127/68; PULSE 49; TEMP 36.4; O2SAT 96
[2016-11-26 18:25] VITALS: BP 131/76; PULSE 50
[2016-11-26 18:26] VITALS: BP 121/68; PULSE 65
[2016-11-26] MEDS: QUETIAPINE FUMARATE 25 MG TAB PO SCH (22:39)
[2016-11-26] MEDS: ENOXAPARIN 40 MG/0.4 ML SYR SQ SCH (22:41)
[2016-11-27 00:27] VITALS: BP 117/69; PULSE 62; TEMP 36.9; O2SAT 96
[2016-11-27] MEDS: THIAMINE HCL 100 MG TAB PO SCH (08:43)
[2016-11-27] MEDS: SERTRALINE HCL 50 MG TAB PO SCH (08:43)
[2016-11-27] MEDS: CYANOCOBALAMIN 500 MCG TAB (VIT B-12) PO SCH (08:43)
[2016-11-27] MEDS: ASPIRIN 81 MG ECTAB PO SCH (08:43)
[2016-11-27] MEDS: CARBIDOPA/LEVODOPA 25/100MG TAB PO SCH ×4 (08:43→20:13)
[2016-11-27 08:53] VITALS: BP 128/63; PULSE 65; TEMP 36.7; O2SAT 97
[2016-11-27 15:02] VITALS: BP 127/71; PULSE 65; TEMP 36.7; O2SAT 96
--- NOTE | 2016-11-27 15:21 | Neurology Progress Notes ---
Neurology Progress Note Date of Service Nov 27, 2016. Nino Bojorquez is a 71 year old male with PMH of Parkinson, progressive supranuclear palsy, Lewy body dementia, depression. He presented to the ED after multiple falls. His daughter had reported he had 4 falls in 1 week. His daughter witness a fall according to chart when a chair gave out on him and hit his head. Patient does not know why his is here and the daughter is on in the room at this time. He does use a walker and cane at home. Daughter states he has been having hallucinations of people in the room frequently during this time, while before this was only occasional and periods of agitation. Daughter states he has been eating well at home but does not drink much fluids. Today he states he was just up with physical therapy and he is very tired. denies CP, SOB, abdominal pain, headache.+ back pain (chronic) Objective Date Time Temp Pulse Resp B/P Pulse Ox O2 Delivery O2 Flow Rate FiO2 11/27/16 15:02 36.7 65 18 127/71 96 Room Air 11/27/16 08:53 36.7 65 18 128/63 97 Room Air 11/27/16 08:01 Room Air 11/27/16 00:27 36.9 62 18 117/69 96 Room Air 11/27/16 00:00 Room Air 11/26/16 20:00 Room Air 11/26/16 18:26 65 121/68 11/26/16 18:25 50 131/76 11/26/16 18:24 36.4 49 18 127/68 96 11/26/16 16:15 Room Air 11/26/16 15:48 36.6 44 18 129/69 97 no new labs Imaging: no new imaging Exam: Physical Exam: Constitutional: appearance nourished, healthy and normal Ears, Nose, Mouth and Throat: mucous membranes moist, no injection and skin normal, eyes normal Cardiovascular: normal S-1 and S-2 and regular rate and rhythm Respiratory: clear to auscultation (CTA) and no rales, rhonchi or wheeze Musculoskeletal: no peripheral edema and good distal pulses Skin: no stigmata of neurocutaneous disease noted and normal and intact Eyes: extraocular muscles intact (EOMI) and pupils equal, round and reactive to light (PERRL), decreased blink frequency NEUROLOGIC EXAMINATION: Mental status: Alert and interactive Oriented location Oriented to person Speech fluent with no evidence of aphasia Cranial Nerves facial symmetry, mask facies Coordination: finger to nose without bi pass, resting tremor bilaterally L>R cogwheeling bilaterally Gait/Stance: lying in bed Strength: patient states he is too tired Current Inpatient Medications Medications (Trade) Dose Ordered Sig/Carlotta Route Start Time Stop Time Status Last Admin Dose Admin Acetaminophen (Tylenol Tab) 650 mg Q4H PRN PO 11/25/16 17:30 12/25/16 17:29 Ondansetron HCl (Zofran Inj) 4 mg Q6H PRN IV 11/25/16 17:30 12/25/16 17:29 Aspirin (Ecotrin Tab) 81 mg QAM PO 11/26/16 09:00 12/26/16 08:59 11/27/16 08:43 81 MG Cyanocobalamin (Vitamin B-12 Tab) 1,000 mcg DAILY PO 11/26/16 09:00 12/26/16 08:59 11/27/16 08:43 1,000 MCG Ammonium Lactate (Lac-Hydrin) 1 appl BID PRN EXT 11/25/16 17:30 12/25/16 17:29 Quetiapine Fumarate (seroQUEL TAB) 25 mg HS PO 11/25/16 21:00 12/25/16 20:59 11/26/16 22:39 25 MG Sertraline HCl (Zoloft Tab) 50 mg DAILY PO 11/26/16 09:00 12/26/16 08:59 11/27/16 08:43 50 MG Thiamine HCl (Vitamin B-1 Tab) 100 mg DAILY PO 11/26/16 09:00 12/26/16 08:59 11/27/16 08:43 100 MG Enoxaparin Sodium (Lovenox Inj) 40 mg DAILY@2000 SQ 11/25/16 20:00 12/25/16 19:59 11/25/16 20:38 40 MG Miscellaneous (Iv Fluids Completed) 1 ea PRN PRN N/A 11/25/16 19:15 11/25/17 19:14 Carbidopa/Levodopa (Sinemet 25/ 100MG Tab) 1.5 tab QID PO 11/26/16 21:00 01/15/17 20:59 11/27/16 12:25 1.5 TAB Impression 71 year old male progressive confusion, falls and hallucinations Plan 1. currently on Sinemet 25/100 mg QID- will increase to 1 1/2 tablets QID 2. Seroquel 25 mg was started as outpatient and may cause drowsiness 3. Razadyne 4 mg hs - unsure when this was started but can potentially cause dizziness, bradycardia, weight loss, syncope-will stop 4. orthostatic blood pressure- not orthostatic 5. no infectious source of change in MS found 6. PT/OT for discharge needs- referral to [facility] must be off 1:1 for 48 hours before they will accept him 7. psychiatry for behavior and thought issues- getting up at night ? if should be moved to an AM med will defer to psychiatry 8. fall precautions 9. 1:1 only to observe behavior issues- no longer needed 10. daughter reports she is walking out of the house. planning to obtain door alarms to prevent. they are also building a 1 story home to accommodate them better should be done in next 6 months. I have seen and discussed above patient with Dr Anne-Marie Reed, neurology Pt seen and examined, agree with management as above. Pt appears fatigued but not currently overtly delirious. Agree with increase in dose of SSRI bc of pt suicidal and homicidal ideation. BECCA Reed MD
[2016-11-27 16:00] VITALS: O2SAT 96
--- NOTE | 2016-11-27 16:58 | Progress Note ---
Medicine Progress Note Date & Time of Visit: Nov 27, 2016 at 16:30. Subjective Pt was seen and examined Sitting in bed comfortable with no distress Pt said that he feels fine he is alone in the room with no 1:1 sitter denies any chest pain, palpitation, hallucination and SOB Objective Last 8 Hrs Date Time Temp Pulse Resp B/P Pulse Ox O2 Delivery O2 Flow Rate FiO2 11/27/16 15:02 36.7 65 18 127/71 96 Room Air 11/27/16 08:53 36.7 65 18 128/63 97 Room Air Physical Exam: General- No acute distress, very pleasant Head- atraumatic Eyes- PERRL, EOMI ENT- oropharynx clear Neck- supple, no JVD Lungs- clear to auscultation and percussion Heart- regular rhythm; no murmur Abdomen- normal bowel sounds, soft Extremities- no calf tenderness Neuro- alert, oriented, PERRL Skin- warm & dry Assessment & Plan MULTIPLE FALLS Likely mechanical falls due to underlying Parkinsonism CT head- negative CT of right shoulder showed no moderate degenerative change. No acute bony abnormality Continue PT and OT evaluation Fall precautions Will discharge to rehab tomorrow DEPRESSION/ HALLUCINATIONS/ AGITATION RECENT SUICIDAL IDEATION Discussed with Daughter, he has been taking Zoloft since 2013 Will increase Zoloft to 100 mg daily as per psych recommendation PARKINSON'S VARIANT Sinemet increased to 1 1/2 tab per Neuro LEWY BODY DEMENTIA Continue galantamine CODE STATUS Full code- Would not want prolonged life support. DVT PROPHYLAXIS Lovenox SQ DISPO Lives at home with / daughter. Daughter expressed interest in placement at Parkinson's unit at [facility]. PT/OT and social security assessor consulted. Possible discharge tomorrow to [facility] Consultants: psych neuro PT/OT Current Inpatient Medications: Current Inpatient Medications Medications (Trade) Dose Ordered Sig/Carlotta Route Start Time Stop Time Status Last Admin Dose Admin Acetaminophen (Tylenol Tab) 650 mg Q4H PRN PO 11/25/16 17:30 12/25/16 17:29 Ondansetron HCl (Zofran Inj) 4 mg Q6H PRN IV 11/25/16 17:30 12/25/16 17:29 Aspirin (Ecotrin Tab) 81 mg QAM PO 11/26/16 09:00 12/26/16 08:59 11/27/16 08:43 81 MG Cyanocobalamin (Vitamin B-12 Tab) 1,000 mcg DAILY PO 11/26/16 09:00 12/26/16 08:59 11/27/16 08:43 1,000 MCG Ammonium Lactate (Lac-Hydrin) 1 appl BID PRN EXT 11/25/16 17:30 12/25/16 17:29 Quetiapine Fumarate (seroQUEL TAB) 25 mg HS PO 11/25/16 21:00 12/25/16 20:59 11/26/16 22:39 25 MG Sertraline HCl (Zoloft Tab) 50 mg DAILY PO 11/26/16 09:00 12/26/16 08:59 11/27/16 08:43 50 MG Thiamine HCl (Vitamin B-1 Tab) 100 mg DAILY PO 11/26/16 09:00 12/26/16 08:59 11/27/16 08:43 100 MG Enoxaparin Sodium (Lovenox Inj) 40 mg DAILY@2000 SQ 11/25/16 20:00 12/25/16 19:59 11/25/16 20:38 40 MG Miscellaneous (Iv Fluids Completed) 1 ea PRN PRN N/A 11/25/16 19:15 11/25/17 19:14 Carbidopa/Levodopa (Sinemet 25/ 100MG Tab) 1.5 tab QID PO 11/26/16 21:00 01/15/17 20:59 11/27/16 12:25 1.5 TAB
[2016-11-27] MEDS: QUETIAPINE FUMARATE 25 MG TAB PO SCH (20:13)
[2016-11-27] MEDS: ENOXAPARIN 40 MG/0.4 ML SYR SQ SCH (20:15)
[2016-11-28 00:47] VITALS: BP 118/70; PULSE 66; TEMP 36.8; O2SAT 97
[2016-11-28 07:39] VITALS: BP 151/78; PULSE 50; TEMP 37; O2SAT 97
[2016-11-28] MEDS: SERTRALINE HCL 100 MG TAB PO SCH (08:04)
[2016-11-28] MEDS: THIAMINE HCL 100 MG TAB PO SCH (08:04)
[2016-11-28] MEDS: CYANOCOBALAMIN 500 MCG TAB (VIT B-12) PO SCH (08:05)
[2016-11-28] MEDS: ASPIRIN 81 MG ECTAB PO SCH (08:05)
[2016-11-28] MEDS: CARBIDOPA/LEVODOPA 25/100MG TAB PO SCH ×4 (08:05→19:57)
[2016-11-28] MEDS ORDERED: QUETIAPINE FUMARATE 25 MG TAB PO ONE (14:40)
--- NOTE | 2016-11-28 14:42 | Neurology Progress Notes ---
Neurology Progress Note Date of Service Nov 28, 2016. Nino Bojorquez is a 71 year old male with PMH of Parkinson, progressive supranuclear palsy, Lewy body dementia, depression. He presented to the ED after multiple falls. His daughter had reported he had 4 falls in 1 week. His daughter witness a fall according to chart when a chair gave out on him and hit his head. Patient does not know why his is here and the daughter is on in the room at this time. He does use a walker and cane at home. Daughter states he has been having hallucinations of people in the room frequently during this time, while before this was only occasional and periods of agitation. Daughter states he has been eating well at home but does not drink much fluids. He is sitting on the side of the bed currently and very agitated. Nursing was notified and he doesn't want to get back in bed because his ran way. Objective Date Time Temp Pulse Resp B/P Pulse Ox O2 Delivery O2 Flow Rate FiO2 11/28/16 07:45 Room Air 11/28/16 07:39 37.0 50 16 151/78 97 Room Air 11/28/16 00:47 36.8 66 18 118/70 97 Room Air 11/28/16 00:00 Room Air 11/27/16 16:00 96 Room Air 11/27/16 15:02 36.7 65 18 127/71 96 Room Air no new labs Imaging: no new images Exam: Physical Exam: Constitutional: appearance nourished, agitated Ears, Nose, Mouth and Throat: mucous membranes moist, no injection and skin normal, eyes normal Cardiovascular: normal S-1 and S-2 and regular rate and rhythm Respiratory: clear to auscultation (CTA) and no rales, rhonchi or wheeze Musculoskeletal: no peripheral edema Skin: no stigmata of neurocutaneous disease noted and normal and intact Eyes: extraocular muscles intact (EOMI) and pupils equal, round and reactive to light (PERRL) NEUROLOGIC EXAMINATION: Mental status: Alert and interactive Oriented to person Speech fluent with no evidence of aphasia Cranial Nerves facial symmetry Gait/Stance: sitting on side of bed Strength: UE strength 5/5 pulled self to side of bed, resting tremor, cogwheeling, LE appear stiff but flexed Current Inpatient Medications Medications (Trade) Dose Ordered Sig/Carlotta Route Start Time Stop Time Status Last Admin Dose Admin Acetaminophen (Tylenol Tab) 650 mg Q4H PRN PO 11/25/16 17:30 12/25/16 17:29 Ondansetron HCl (Zofran Inj) 4 mg Q6H PRN IV 11/25/16 17:30 12/25/16 17:29 Aspirin (Ecotrin Tab) 81 mg QAM PO 11/26/16 09:00 12/26/16 08:59 11/28/16 08:05 81 MG Cyanocobalamin (Vitamin B-12 Tab) 1,000 mcg DAILY PO 11/26/16 09:00 12/26/16 08:59 11/28/16 08:05 1,000 MCG Ammonium Lactate (Lac-Hydrin) 1 appl BID PRN EXT 11/25/16 17:30 12/25/16 17:29 Quetiapine Fumarate (seroQUEL TAB) 25 mg HS PO 11/25/16 21:00 12/25/16 20:59 11/27/16 20:13 25 MG Thiamine HCl (Vitamin B-1 Tab) 100 mg DAILY PO 11/26/16 09:00 12/26/16 08:59 11/28/16 08:04 100 MG Enoxaparin Sodium (Lovenox Inj) 40 mg DAILY@2000 SQ 11/25/16 20:00 12/25/16 19:59 11/27/16 20:15 40 MG Miscellaneous (Iv Fluids Completed) 1 ea PRN PRN N/A 11/25/16 19:15 11/25/17 19:14 Carbidopa/Levodopa (Sinemet 25/ 100MG Tab) 1.5 tab QID PO 11/26/16 21:00 01/15/17 20:59 11/28/16 11:59 1.5 TAB Sertraline HCl (Zoloft Tab) 100 mg QAM PO 11/28/16 09:00 12/28/16 08:59 11/28/16 08:04 100 MG Impression 71 year old male progressive confusion, falls and hallucinations Plan 1. currently on Sinemet 25/100 mg QID- will increase to 1 1/2 tablets QID 2. Seroquel 25 mg was started as outpatient and may cause drowsiness 3. Razadyne 4 mg hs - unsure when this was started but can potentially cause dizziness, bradycardia, weight loss, syncope-will stop 4. orthostatic blood pressure- not orthostatic 5. no infectious source of change in MS found 6. PT/OT for discharge needs- referral to [facility] must be off 1:1 for 48 hours before they will accept him 7. psychiatry for behavior and thought issues- getting up at night ? if should be moved to an AM med will defer to psychiatry- discussed this with Humera from psychiatry. She is giving a dose of Seraquel now and then starting on an am dose. will see if this decreases behavior issues. also recommended trying to get Nuplazid approved as an outpatient which is specifically used with Parkinson 's patients for hallucinations. 8. fall precautions 9. 1:1 only to observe behavior issues- no longer needed 10. daughter reports she is walking out of the house. planning to obtain door alarms to prevent. they are also building a 1 story home to accommodate them better should be done in next 6 months. 11. will see in our office after discharge from rehab I have seen and discussed above patient with Dr Anne-Marie Reed, neurology [facility], seen and examined, agree with management, discussed with pt daughter. BECCA Reed MD
[2016-11-28 15:32] VITALS: BP 124/70; PULSE 62; TEMP 36.8; O2SAT 94
[2016-11-28 16:00] VITALS: O2SAT 94
[2016-11-28] MEDS: ENOXAPARIN 40 MG/0.4 ML SYR SQ SCH (19:55)
[2016-11-28] MEDS: QUETIAPINE FUMARATE 25 MG TAB PO SCH (19:56)
--- NOTE | 2016-11-28 20:21 | Progress Note ---
Medicine Progress Note Date & Time of Visit: Nov 28, 2016 at 20:17. Subjective Pt was seen and examined Lying in bed comfortable with no distress waiting for insurance approval to transfer to rehab Objective Last 8 Hrs Date Time Temp Pulse Resp B/P Pulse Ox O2 Delivery O2 Flow Rate FiO2 11/28/16 16:00 94 Room Air 11/28/16 15:32 36.8 62 17 124/70 94 Room Air Physical Exam: General- No acute distress, very pleasant Head- atraumatic Eyes- PERRL, EOMI ENT- oropharynx clear Neck- supple, no JVD Lungs- clear to auscultation and percussion Heart- regular rhythm; no murmur Abdomen- normal bowel sounds, soft Extremities- no calf tenderness Neuro- alert, oriented, PERRL Skin- warm & dry Assessment & Plan MULTIPLE FALLS Likely mechanical falls due to underlying Parkinsonism CT head- negative CT of right shoulder showed no moderate degenerative change. No acute bony abnormality Continue PT and OT evaluation Fall precautions Waiting for approval to discharge to rehab DEPRESSION/ HALLUCINATIONS/ AGITATION RECENT SUICIDAL IDEATION Discussed with Daughter, he has been taking Zoloft since 2012 Zoloft increased to 100 mg yesterday as per psych recommendation No sign effect PARKINSON'S VARIANT Sinemet increased to 1 1/2 tab per Neuro Will continue follow up with neuro once discharge from rehab LEWY BODY DEMENTIA Continue galantamine CODE STATUS Full code- Would not want prolonged life support. DVT PROPHYLAXIS Lovenox SQ DISPO Lives at home with / daughter. Daughter expressed interest in placement at Parkinson's unit at [facility]. PT/OT and social worker aide consulted. Denied approval to [facility] Consultants: psych neuro PT/OT Current Inpatient Medications: Current Inpatient Medications Medications (Trade) Dose Ordered Sig/Carlotta Route Start Time Stop Time Status Last Admin Dose Admin Acetaminophen (Tylenol Tab) 650 mg Q4H PRN PO 11/25/16 17:30 12/25/16 17:29 Ondansetron HCl (Zofran Inj) 4 mg Q6H PRN IV 11/25/16 17:30 12/25/16 17:29 Aspirin (Ecotrin Tab) 81 mg QAM PO 11/26/16 09:00 12/26/16 08:59 11/28/16 08:05 81 MG Cyanocobalamin (Vitamin B-12 Tab) 1,000 mcg DAILY PO 11/26/16 09:00 12/26/16 08:59 11/28/16 08:05 1,000 MCG Ammonium Lactate (Lac-Hydrin) 1 appl BID PRN EXT 11/25/16 17:30 12/25/16 17:29 Quetiapine Fumarate (seroQUEL TAB) 25 mg HS PO 11/25/16 21:00 12/25/16 20:59 11/28/16 19:56 25 MG Thiamine HCl (Vitamin B-1 Tab) 100 mg DAILY PO 11/26/16 09:00 12/26/16 08:59 11/28/16 08:04 100 MG Enoxaparin Sodium (Lovenox Inj) 40 mg DAILY@2000 SQ 11/25/16 20:00 12/25/16 19:59 11/28/16 19:55 40 MG Miscellaneous (Iv Fluids Completed) 1 ea PRN PRN N/A 11/25/16 19:15 11/25/17 19:14 Carbidopa/Levodopa (Sinemet 25/ 100MG Tab) 1.5 tab QID PO 11/26/16 21:00 01/15/17 20:59 11/28/16 19:57 1.5 TAB Sertraline HCl (Zoloft Tab) 100 mg QAM PO 11/28/16 09:00 12/28/16 08:59 11/28/16 08:04 100 MG Quetiapine Fumarate (seroQUEL TAB) 25 mg QAM PO 11/29/16 09:00 12/29/16 08:59
[2016-11-29 00:04] VITALS: BP 118/73; PULSE 66; TEMP 36.5; O2SAT 94
[2016-11-29 07:41] VITALS: BP 144/83; PULSE 67; TEMP 36.9; O2SAT 96
[2016-11-29 07:43] LABS: MEAN CELL VOLUME 86.7 fL (80-100); MEAN CORPUSCULAR HEMOGLOBIN 29.6 pg (25-34); MEAN CORPUSCULAR HGB CONC 34.1 g/dl (32-36); MEAN PLATELET VOLUME 9.9 fL (7.4-10.4); PLATELET COUNT 169 K/uL (130-400); RED BLOOD COUNT 4.73 M/uL (4.7-6.1)
[2016-11-29 08:00] VITALS: O2SAT 96
[2016-11-29] MEDS: ASPIRIN 81 MG ECTAB PO SCH (08:08)
[2016-11-29] MEDS: CYANOCOBALAMIN 500 MCG TAB (VIT B-12) PO SCH (08:08)
[2016-11-29] MEDS: THIAMINE HCL 100 MG TAB PO SCH (08:09)
[2016-11-29] MEDS: CARBIDOPA/LEVODOPA 25/100MG TAB PO SCH ×4 (08:10→20:52)
[2016-11-29] MEDS: SERTRALINE HCL 100 MG TAB PO SCH (08:10)
[2016-11-29 08:29] LABS: BUN/CREATININE RATIO 24.3 (10-20); CALCIUM 8.4 mg/dl (8.5-10.1); CREATININE 0.69 mg/dl (0.60-1.40); POTASSIUM 3.7 mmol/L (3.5-5.1)
[2016-11-29] MEDS ORDERED: QUETIAPINE FUMARATE 25 MG TAB PO SCH (09:00)
--- NOTE | 2016-11-29 13:52 | Neurology Progress Notes ---
Neurology Progress Note Date of Service Nov 29, 2016. Nino Bojorquez is a 71 year old male with PMH of Parkinson, progressive supranuclear palsy, Lewy body dementia, depression. He presented to the ED after multiple falls. His daughter had reported he had 4 falls in 1 week. His daughter witness a fall according to chart when a chair gave out on him and hit his head. Patient does not know why his is here and the daughter is on in the room at this time. He does use a walker and cane at home. Daughter states he has been having hallucinations of people in the room frequently during this time, while before this was only occasional and periods of agitation. Daughter states he has been eating well at home but does not drink much fluids. Today he is not agitated but he is mumbling and not making sense. He is cooperative and does not appear in any pain. He was very agitated yesterday and trying to stand without assistance. Psychiatry was called and he was given Seroquel 50 mg and started on Seroquel 25 mg am/pm. Objective Date Time Temp Pulse Resp B/P Pulse Ox O2 Delivery O2 Flow Rate FiO2 11/29/16 08:00 96 Room Air 11/29/16 07:41 36.9 67 20 144/83 96 11/29/16 03:00 Room Air 11/29/16 00:04 36.5 66 18 118/73 94 Room Air 11/28/16 16:00 94 Room Air 11/28/16 15:32 36.8 62 17 124/70 94 Room Air Last 24 Hours Test 11/29/16 07:32 White Blood Count 5.60 K/uL Red Blood Count 4.73 M/uL Hemoglobin 14.0 g/dL Hematocrit 41.0 % Mean Corpuscular Volume 86.7 fL Mean Corpuscular Hemoglobin 29.6 pg Mean Corpuscular Hemoglobin Concent 34.1 g/dl RDW Standard Deviation 40.5 fL RDW Coefficient of Variation 12.6 % Platelet Count 169 K/uL Mean Platelet Volume 9.9 fL Sodium Level 142 mmol/L Potassium Level 3.7 mmol/L Chloride Level 109 mmol/L Carbon Dioxide Level 25 mmol/L Anion Gap 8.0 mmol/L Blood Urea Nitrogen 17 mg/dl Creatinine 0.69 mg/dl Est Creatinine Clear Calc Drug Dose 109.8 ml/min Estimated GFR () 109.9 Estimated GFR (Non- 94.8 BUN/Creatinine Ratio 24.3 Random Glucose 89 mg/dl Calcium Level 8.4 mg/dl Imaging: no new imaging Exam: Gen: alert NAD PERRLA/EOMI lungs CTA CV RRR UE hand grasp/ biceps/triceps 5/5, LE moves with stimulation but are stiff when moved bilateral wrist cogwheeling L>R, resting tremor Current Inpatient Medications Medications (Trade) Dose Ordered Sig/Carlotta Route Start Time Stop Time Status Last Admin Dose Admin Acetaminophen (Tylenol Tab) 650 mg Q4H PRN PO 11/25/16 17:30 12/25/16 17:29 Ondansetron HCl (Zofran Inj) 4 mg Q6H PRN IV 11/25/16 17:30 12/25/16 17:29 Aspirin (Ecotrin Tab) 81 mg QAM PO 11/26/16 09:00 12/26/16 08:59 11/29/16 08:08 81 MG Cyanocobalamin (Vitamin B-12 Tab) 1,000 mcg DAILY PO 11/26/16 09:00 12/26/16 08:59 11/29/16 08:08 1,000 MCG Ammonium Lactate (Lac-Hydrin) 1 appl BID PRN EXT 11/25/16 17:30 12/25/16 17:29 Quetiapine Fumarate (seroQUEL TAB) 25 mg HS PO 11/25/16 21:00 12/25/16 20:59 11/28/16 19:56 25 MG Thiamine HCl (Vitamin B-1 Tab) 100 mg DAILY PO 11/26/16 09:00 12/26/16 08:59 11/29/16 08:09 100 MG Enoxaparin Sodium (Lovenox Inj) 40 mg DAILY@2000 SQ 11/25/16 20:00 12/25/16 19:59 11/28/16 19:55 40 MG Miscellaneous (Iv Fluids Completed) 1 ea PRN PRN N/A 11/25/16 19:15 11/25/17 19:14 Carbidopa/Levodopa (Sinemet 25/ 100MG Tab) 1.5 tab QID PO 11/26/16 21:00 01/15/17 20:59 11/29/16 11:55 1.5 TAB Sertraline HCl (Zoloft Tab) 100 mg QAM PO 11/28/16 09:00 12/28/16 08:59 11/29/16 08:10 100 MG Quetiapine Fumarate (seroQUEL TAB) 25 mg QAM PO 11/29/16 09:00 12/29/16 08:59 11/29/16 08:09 25 MG Impression 71 year old male progressive confusion, falls and hallucinations Plan 1. currently on Sinemet 25/100 mg QID- increased to 1 1/2 tablets QID 2. Seroquel 25 mg am / pm watch for increased drowsiness 3. Razadyne 4 mg hs - stopped 4. orthostatic blood pressure- not orthostatic 5. no infectious source of change in MS found 6. PT/OT for discharge needs- referral to [facility] was declined due to flight risk 7. psychiatry for behavior and thought issues- getting up at night ? if should be moved to an AM med will defer to psychiatry- discussed this with Humera from psychiatry. She is giving a dose of Seraquel now and then starting on an am dose. will see if this decreases behavior issues. also recommended trying to get Nuplazid approved as an outpatient which is specifically used with Parkinson 's patients for hallucinations. 8. fall precautions 9. currently ok without 1:1 10. daughter reports she is walking out of the house. planning to obtain door alarms to prevent. they are also building a 1 story home to accommodate them better should be done in next 6 months. 11. will see in our office after discharge from rehab I have seen and discussed above patient with Dr Kelton Yost, neurology I have seen this man today He is lethargic and has some moderate Parkinsons findings diagnosis is likely parkinsons with dementia and if so the Nupalzid rx recommended by psychiatry may be of some help but approval would have to come from the [facility]. I will check back tomorrow Kelton Yost MD
[2016-11-29 15:48] VITALS: BP 120/73; PULSE 65; TEMP 36.8; O2SAT 95
[2016-11-29 16:00] VITALS: O2SAT 96
--- NOTE | 2016-11-29 16:34 | Psychiatric Progress Notes ---
Psychiatric Progress Note Date of Service Nov 29, 2016. Notes ID: Patient reviewed with liaison nurse. Initial consultation by EVE Siu dated 11/26/15 reviewed. Initial recommendation was to increase Zoloft to assist with agitation. Patient was on Seroquel 50 mg at hs upon admission. Sinemet was increased by neurology and a provider wrote to add am dose of Seroquel. CC: sedated HPI: patient was unable to cooperate with example, brief rambling/nonsensical speech ROS: unable to complete MSE: masked faces, currently no resting tremor Imp: parkinsons disease with lewbody dementia/delirium Plan: appears oversedated on current dosing of Seroquel, patients with lewy body disease exquisitely sensitive to side effects of atypicals, will decrease am dose to 12.5 mg.
--- NOTE | 2016-11-29 19:15 | Progress Note ---
Medicine Progress Note Date & Time of Visit: Nov 29, 2016 at 19:10. Subjective pt was seen and examined sitting in bed with no distress he seems a little slow today and sleepy denies any chest pain, palpitation and SOB Objective Last 8 Hrs Date Time Temp Pulse Resp B/P Pulse Ox O2 Delivery O2 Flow Rate FiO2 11/29/16 16:00 96 Room Air 11/29/16 15:48 36.8 65 20 120/73 95 Physical Exam: General- sleepy, no distress Head- atraumatic Eyes- PERRL, EOMI ENT- oropharynx clear Neck- supple, no JVD Lungs- clear to auscultation and percussion Heart- regular rhythm; no murmur Abdomen- normal bowel sounds, soft Extremities- no calf tenderness Neuro- alert, oriented, PERRL Skin- warm & dry Laboratory Results: Last 24 Hours Test 11/29/16 07:32 White Blood Count 5.60 K/uL Red Blood Count 4.73 M/uL Hemoglobin 14.0 g/dL Hematocrit 41.0 % Mean Corpuscular Volume 86.7 fL Mean Corpuscular Hemoglobin 29.6 pg Mean Corpuscular Hemoglobin Concent 34.1 g/dl RDW Standard Deviation 40.5 fL RDW Coefficient of Variation 12.6 % Platelet Count 169 K/uL Mean Platelet Volume 9.9 fL Sodium Level 142 mmol/L Potassium Level 3.7 mmol/L Chloride Level 109 mmol/L Carbon Dioxide Level 25 mmol/L Anion Gap 8.0 mmol/L Blood Urea Nitrogen 17 mg/dl Creatinine 0.69 mg/dl Est Creatinine Clear Calc Drug Dose 109.8 ml/min Estimated GFR () 109.9 Estimated GFR (Non- 94.8 BUN/Creatinine Ratio 24.3 Random Glucose 89 mg/dl Calcium Level 8.4 mg/dl Assessment & Plan MULTIPLE FALLS Likely mechanical falls due to underlying Parkinsonism CT head- negative CT of right shoulder showed no moderate degenerative change. No acute bony abnormality Continue PT and OT evaluation Fall precautions Waiting for approval to discharge to rehab DEPRESSION/ HALLUCINATIONS/ AGITATION RECENT SUICIDAL IDEATION Discussed with Daughter, he has been taking Zoloft since 2012 Zoloft increased to 100 mg yesterday as per psych recommendation Seroquel am dose was decreased to 12.5 because pt looks lethargy PARKINSON'S VARIANT Sinemet increased to 1 1/2 tab per Neuro Will continue follow up with neuro once discharge from rehab Stable LEWY BODY DEMENTIA Continue galantamine CODE STATUS Full code- Would not want prolonged life support. DVT PROPHYLAXIS Lovenox SQ DISPO Lives at home with / daughter. Daughter expressed interest in placement at Parkinson's unit at [facility]. PT/OT and social service worker consulted. Denied approval to [facility] waiting for approval to rehab Consultants: psych neuro PT/OT Current Inpatient Medications: Current Inpatient Medications Medications (Trade) Dose Ordered Sig/Carlotta Route Start Time Stop Time Status Last Admin Dose Admin Acetaminophen (Tylenol Tab) 650 mg Q4H PRN PO 11/25/16 17:30 12/25/16 17:29 Ondansetron HCl (Zofran Inj) 4 mg Q6H PRN IV 11/25/16 17:30 12/25/16 17:29 Aspirin (Ecotrin Tab) 81 mg QAM PO 11/26/16 09:00 12/26/16 08:59 11/29/16 08:08 81 MG Cyanocobalamin (Vitamin B-12 Tab) 1,000 mcg DAILY PO 11/26/16 09:00 12/26/16 08:59 11/29/16 08:08 1,000 MCG Ammonium Lactate (Lac-Hydrin) 1 appl BID PRN EXT 11/25/16 17:30 12/25/16 17:29 Quetiapine Fumarate (seroQUEL TAB) 25 mg HS PO 11/25/16 21:00 12/25/16 20:59 11/28/16 19:56 25 MG Thiamine HCl (Vitamin B-1 Tab) 100 mg DAILY PO 11/26/16 09:00 12/26/16 08:59 11/29/16 08:09 100 MG Enoxaparin Sodium (Lovenox Inj) 40 mg DAILY@2000 SQ 11/25/16 20:00 12/25/16 19:59 11/28/16 19:55 40 MG Miscellaneous (Iv Fluids Completed) 1 ea PRN PRN N/A 11/25/16 19:15 11/25/17 19:14 Carbidopa/Levodopa (Sinemet 25/ 100MG Tab) 1.5 tab QID PO 11/26/16 21:00 01/15/17 20:59 11/29/16 16:59 1.5 TAB Sertraline HCl (Zoloft Tab) 100 mg QAM PO 11/28/16 09:00 12/28/16 08:59 11/29/16 08:10 100 MG Quetiapine Fumarate (seroQUEL TAB) 12.5 mg QAM PO 11/30/16 09:00 12/30/16 08:59
[2016-11-29] MEDS: ENOXAPARIN 40 MG/0.4 ML SYR SQ SCH (20:50)
[2016-11-29] MEDS: QUETIAPINE FUMARATE 25 MG TAB PO SCH (20:53)
[2016-11-29 23:53] VITALS: BP 158/84; PULSE 65; TEMP 36.6; O2SAT 97
[2016-11-30 07:04] VITALS: BP 150/69; PULSE 46; TEMP 36.6; O2SAT 96
[2016-11-30] MEDS: THIAMINE HCL 100 MG TAB PO SCH (08:29)
[2016-11-30] MEDS: SERTRALINE HCL 100 MG TAB PO SCH (08:29)
[2016-11-30] MEDS: CYANOCOBALAMIN 500 MCG TAB (VIT B-12) PO SCH (08:30)
[2016-11-30] MEDS: CARBIDOPA/LEVODOPA 25/100MG TAB PO SCH ×4 (08:30→20:36)
[2016-11-30] MEDS: ASPIRIN 81 MG ECTAB PO SCH (08:30)
[2016-11-30] MEDS ORDERED: QUETIAPINE FUMARATE 25 MG TAB PO SCH (09:00)
--- NOTE | 2016-11-30 09:20 | Psychiatric Progress Notes ---
Psychiatric Progress Note Date of Service Nov 30, 2016. Notes ID: Patient followed by liaison nurse. Initial consultation by EVE Siu dated 11/26/15 recommended increase Zoloft to assist with agitation. Patient was on Seroquel 50 mg at hs upon admission. Sinemet was increased by neurology and a provider wrote to add am dose of Seroquel. CC: still sedated sedated HPI: patient remains tired appearing, ate partial breakfast ROS: unable to complete MSE: more facial expression than yesterday, still minimal motivation to converse Imp: parkinsons disease with lewbody dementia/delirium Plan: d/c am dose of Seroquel.
--- NOTE | 2016-11-30 12:09 | PROGRESS NOTE ---
DATE: 11/30/2016 DATE: 11/30/2016. [place] is still lethargic. I can arouse him, he will look around the room. He has a little rigidity. I do not see much tremor and I cannot pharmacy picking technician a supranuclear gaze disturbance. He is by no means agitated and looks like the additional Sinemet and the Seroquel seem to be at least calming him down, but right now he is too sedated and hopefully this will pass. I am not precisely clear on the diagnosis here. There are 3 noted i.e. supranuclear palsy, Parkinson's disease and Lewy body disease. I am going to have to get into the chart a little bit and discuss things with Dr. Reed to establish exactly what diagnosis was favored. Psychiatry has mentioned the possibility of Nuplazid, the new agent approved for treating psychosis and Parkinson's patients but I am not sure what role it has in Lewy body disease and whether it it is even safe for use in that particular entity. Right now he has [place] benefits. It is unlikely that the Nuplazid would be covered anyway and I think we are stuck with the atypical neuroleptics here no matter what the diagnosis. I will check back on him tomorrow. Hopefully, he will be a little less sedated at that point we can log turner how much hallucination activity is still going on, but for now it is really hard to tell. MTDD
[2016-11-30 14:37] VITALS: BP 114/70; PULSE 53; TEMP 37.1; O2SAT 94
--- NOTE | 2016-11-30 18:32 | Progress Note ---
Medicine Progress Note Date & Time of Visit: Nov 30, 2016 at 18:27. Subjective Pt was seen and examined he looks more awake later in the afternoon Lying in bed with no distress he looks confused Denies any chest pain, palpitation Objective Last 8 Hrs Date Time Temp Pulse Resp B/P Pulse Ox O2 Delivery O2 Flow Rate FiO2 11/30/16 15:30 Room Air 11/30/16 14:37 37.1 53 20 114/70 94 Physical Exam: General- confused, no acute distress Head- atraumatic Eyes- PERRL, EOMI ENT- oropharynx clear Neck- supple, no JVD Lungs- clear to auscultation and percussion Heart- regular rhythm; no murmur Abdomen- normal bowel sounds, soft Extremities- no calf tenderness Neuro- alert, not oriented with time and placed Skin- warm & dry Assessment & Plan MULTIPLE FALLS Likely mechanical falls due to underlying Parkinsonism CT head- negative CT of right shoulder showed no moderate degenerative change. No acute bony abnormality Continue PT and OT evaluation Fall precautions Waiting for approval to discharge to rehab DEPRESSION/ HALLUCINATIONS/ AGITATION RECENT SUICIDAL IDEATION Discussed with Daughter, he has been taking Zoloft since 2012 Zoloft increased to 100 mg yesterday as per psych recommendation Seroquel will be discontinued because pt is sedated and confused unable to assess him for hallucination PARKINSON'S VARIANT Sinemet increased to 1 1/2 tab per Neuro Will continue follow up with neuro once discharge from rehab Stable LEWY BODY DEMENTIA Continue galantamine CODE STATUS Full code- Would not want prolonged life support. DVT PROPHYLAXIS Lovenox SQ DISPO Lives at home with / daughter. Daughter expressed interest in placement at Parkinson's unit at [facility]. PT/OT and licensed master social worker consulted. Denied approval to [facility] waiting for approval to rehab Consultants: psych neuro PT/OT Current Inpatient Medications: Current Inpatient Medications Medications (Trade) Dose Ordered Sig/Carlotta Route Start Time Stop Time Status Last Admin Dose Admin Acetaminophen (Tylenol Tab) 650 mg Q4H PRN PO 11/25/16 17:30 12/25/16 17:29 Ondansetron HCl (Zofran Inj) 4 mg Q6H PRN IV 11/25/16 17:30 12/25/16 17:29 Aspirin (Ecotrin Tab) 81 mg QAM PO 11/26/16 09:00 12/26/16 08:59 11/30/16 08:30 81 MG Cyanocobalamin (Vitamin B-12 Tab) 1,000 mcg DAILY PO 11/26/16 09:00 12/26/16 08:59 11/30/16 08:30 1,000 MCG Ammonium Lactate (Lac-Hydrin) 1 appl BID PRN EXT 11/25/16 17:30 12/25/16 17:29 Quetiapine Fumarate (seroQUEL TAB) 25 mg HS PO 11/25/16 21:00 12/25/16 20:59 11/29/16 20:53 25 MG Thiamine HCl (Vitamin B-1 Tab) 100 mg DAILY PO 11/26/16 09:00 12/26/16 08:59 11/30/16 08:29 100 MG Enoxaparin Sodium (Lovenox Inj) 40 mg DAILY@2000 SQ 11/25/16 20:00 12/25/16 19:59 11/29/16 20:50 40 MG Miscellaneous (Iv Fluids Completed) 1 ea PRN PRN N/A 11/25/16 19:15 11/25/17 19:14 Carbidopa/Levodopa (Sinemet 25/ 100MG Tab) 1.5 tab QID PO 11/26/16 21:00 01/15/17 20:59 11/30/16 16:24 1.5 TAB Sertraline HCl (Zoloft Tab) 100 mg QAM PO 11/28/16 09:00 12/28/16 08:59 11/30/16 08:29 100 MG
[2016-11-30] MEDS: QUETIAPINE FUMARATE 25 MG TAB PO SCH (20:36)
[2016-11-30] MEDS: ENOXAPARIN 40 MG/0.4 ML SYR SQ SCH (20:36)
[2016-12-01 00:09] VITALS: BP 122/75; PULSE 50; TEMP 36.7; O2SAT 95
[2016-12-01 07:22] VITALS: BP 135/70; PULSE 41; TEMP 36.7; O2SAT 95
[2016-12-01] MEDS: THIAMINE HCL 100 MG TAB PO SCH (08:09)
[2016-12-01] MEDS: SERTRALINE HCL 100 MG TAB PO SCH (08:09)
[2016-12-01] MEDS: CYANOCOBALAMIN 500 MCG TAB (VIT B-12) PO SCH (08:10)
[2016-12-01] MEDS: ASPIRIN 81 MG ECTAB PO SCH (08:10)
[2016-12-01] MEDS: CARBIDOPA/LEVODOPA 25/100MG TAB PO SCH ×4 (08:10→20:59)
--- NOTE | 2016-12-01 12:28 | PROGRESS NOTE ---
DATE: 12/01/2016 [place] looks much better today. He is sitting with his daughter. He is somewhat conversant, although his orientation consists of the fact he knows he is in hospital. Beyond this, he cannot tell me the name of the town and he rambles off, but at least he is speaking, he is much less lethargic and he does have a mild rigid bradykinetic appearance to him but without prominent tremor and he has a normal supranuclear gaze. 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 The general pattern of Lewy body is to present with the cognitive issues, the delusions, hallucinations and then parkinsonism follows. Whatever the case, he may well then be a candidate for Nuplazid but under the [facility] system, I find it highly unlikely this drug would be approved and I think we are stuck with Seroquel. Thus far, the increased Sinemet seems to be helping, his behavior seems to be improving with a little more Seroquel. Plan was going to have him transferred for rehabilitation at [facility]. Apparently now they will not take him because of his flight risk. I think negotiations are undergoing with an alternative facility in [facility] which would actually be better for the family. We will continue to check with him on a daily basis but for now, I would not make any other changes in his medications. FREDA
--- NOTE | 2016-12-01 14:23 | Progress Note ---
Medicine Progress Note Date & Time of Visit: Dec 01, 2016 at 14:16. 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 He said that he feels better today compare to yesterday Pt looks much better, he is able to follow the game he is more awake and doesn't look sedated Denies any chest pain, palpitation, dizziness and SOB Objective Last 8 Hrs Date Time Temp Pulse Resp B/P Pulse Ox O2 Delivery O2 Flow Rate FiO2 12/01/16 08:00 Room Air 12/01/16 07:22 36.7 41 20 135/70 95 Physical Exam: General- no acute distress, enjoying the football game Head- atraumatic Eyes- PERRL, EOMI ENT- oropharynx clear Neck- supple, no JVD Lungs- clear to auscultation and percussion Heart- Bradycardia Abdomen- normal bowel sounds, soft Extremities- no calf tenderness Neuro- alert, not oriented with time and placed Skin- warm & dry Assessment & Plan MULTIPLE FALLS Likely mechanical falls due to underlying Parkinsonism CT head- negative CT of right shoulder showed no moderate degenerative change. No acute bony abnormality Continue PT and OT evaluation Fall precautions Waiting for approval to discharge to rehab BRADYCARDIA Asymptomatic Normal TSH will get an EKG DEPRESSION/ HALLUCINATIONS/ AGITATION RECENT SUICIDAL IDEATION Discussed with Daughter, he has been taking Zoloft since 2012 Zoloft increased to 100 mg yesterday as per psych recommendation Look much better today awake not sedated Seroquel am dose was discontinue continue monitor pt PARKINSON'S VARIANT Sinemet increased to 1 1/2 tab per Neuro Will continue follow up with neuro once discharge from rehab No change in his med as per neuro LEWY BODY DEMENTIA Continue galantamine CODE STATUS Full code- Would not want prolonged life support. DVT PROPHYLAXIS Lovenox SQ DISPO Lives at home with / daughter. Daughter expressed interest in placement at Parkinson's unit at [facility]. PT/OT and social work program coordinator consulted. Denied approval to [facility] waiting for approval to rehab Consultants: psych neuro PT/OT Current Inpatient Medications: Current Inpatient Medications Medications (Trade) Dose Ordered Sig/Carlotta Route Start Time Stop Time Status Last Admin Dose Admin Acetaminophen (Tylenol Tab) 650 mg Q4H PRN PO 11/25/16 17:30 12/25/16 17:29 Ondansetron HCl (Zofran Inj) 4 mg Q6H PRN IV 11/25/16 17:30 12/25/16 17:29 Aspirin (Ecotrin Tab) 81 mg QAM PO 11/26/16 09:00 12/26/16 08:59 12/01/16 08:10 81 MG Cyanocobalamin (Vitamin B-12 Tab) 1,000 mcg DAILY PO 11/26/16 09:00 12/26/16 08:59 12/01/16 08:10 1,000 MCG Ammonium Lactate (Lac-Hydrin) 1 appl BID PRN EXT 11/25/16 17:30 12/25/16 17:29 Quetiapine Fumarate (seroQUEL TAB) 25 mg HS PO 11/25/16 21:00 12/25/16 20:59 11/30/16 20:36 25 MG Thiamine HCl (Vitamin B-1 Tab) 100 mg DAILY PO 11/26/16 09:00 12/26/16 08:59 12/01/16 08:09 100 MG Enoxaparin Sodium (Lovenox Inj) 40 mg DAILY@2000 SQ 11/25/16 20:00 12/25/16 19:59 11/30/16 20:36 40 MG Miscellaneous (Iv Fluids Completed) 1 ea PRN PRN N/A 11/25/16 19:15 11/25/17 19:14 Carbidopa/Levodopa (Sinemet 25/ 100MG Tab) 1.5 tab QID PO 11/26/16 21:00 01/15/17 20:59 12/01/16 13:07 1.5 TAB Sertraline HCl (Zoloft Tab) 100 mg QAM PO 11/28/16 09:00 12/28/16 08:59 12/01/16 08:09 100 MG
[2016-12-01 14:38] VITALS: BP 142/93; PULSE 65; TEMP 37.1; O2SAT 94
[2016-12-01] MEDS: QUETIAPINE FUMARATE 25 MG TAB PO SCH (20:59)
[2016-12-01] MEDS: ENOXAPARIN 40 MG/0.4 ML SYR SQ SCH (20:59)
[2016-12-02 01:10] VITALS: BP 135/74; PULSE 54; TEMP 36.5; O2SAT 97
[2016-12-02 07:11] LABS: HEMATOCRIT 42.5 % (42-52); MEAN CELL VOLUME 86.2 fL (80-100); MEAN CORPUSCULAR HEMOGLOBIN 29.2 pg (25-34); MEAN CORPUSCULAR HGB CONC 33.9 g/dl (32-36); MEAN PLATELET VOLUME 10.1 fL (7.4-10.4); PLATELET COUNT 214 K/uL (130-400); RED BLOOD COUNT 4.93 M/uL (4.7-6.1); WHITE BLOOD COUNT 5.68 K/uL (4.8-10.8)
[2016-12-02 07:42] LABS: BUN/CREATININE RATIO 24.9 (10-20); CALCIUM 8.7 mg/dl (8.5-10.1); CREATININE 0.79 mg/dl (0.60-1.40); MAGNESIUM 2.5 mg/dl (1.8-2.4); POTASSIUM 3.5 mmol/L (3.5-5.1)
[2016-12-02 07:51] VITALS: BP 124/68; PULSE 50; TEMP 36.9; O2SAT 95
[2016-12-02] MEDS: SERTRALINE HCL 100 MG TAB PO SCH (08:23)
[2016-12-02] MEDS: ASPIRIN 81 MG ECTAB PO SCH (08:23)
[2016-12-02] MEDS: THIAMINE HCL 100 MG TAB PO SCH (08:24)
[2016-12-02] MEDS: CARBIDOPA/LEVODOPA 25/100MG TAB PO SCH ×4 (08:24→20:35)
[2016-12-02] MEDS: CYANOCOBALAMIN 500 MCG TAB (VIT B-12) PO SCH (08:24)
[2016-12-02 16:03] VITALS: BP 158/83; PULSE 65; TEMP 36.4; O2SAT 94
--- NOTE | 2016-12-02 16:35 | PROGRESS NOTE ---
DATE: 12/02/2016 SUBJECTIVE: Unfortunately, his daughter was not in or no family members. He was sitting in the bed, in a fairly rigid state and was clearly confused. He was not agitated. He asked me to help him up and then he wanted me to take him home and I tried to explain to him that he was not going to go home and he was here in the hospital. He seemed to accept this for a little bit of time but then asked the question again. Luckily, he has pretty impaired movement chris and I do not think he will be able to get himself off the bed and nursing is paying close attention. He is clearly still mildly agitated, confused, probably still was hallucinating and psychiatry is seeing him. From a neurologic point of view, we are going to keep his Sinemet just where it is and hopefully similarly behavioral will begin to respond to Seroquel. As I stated previously, he might be an excellent candidate for NUplazid but I do not think he is going to be able to get the drug with his current insurance coverage and we are stuck with the atypical neuroleptics. Placement is going to be an issue. I am not sure any institutions will be willing to take him. Apparently, his daughter wants [facility] to take another look and we will see how this works out, but for now I do not think neurology has much more to offer and we are going to back off the case and see him on an as-needed basis while here in the hospital. FREDA
--- NOTE | 2016-12-02 19:31 | Progress Note ---
Medicine Progress Note Date & Time of Visit: Dec 02, 2016 at 19:21. Subjective Pt was seen and examined Sitting in bed with no distress. he is Confused. i asked him about the football game he watched yesterday he did not remember if he watched any game. he did not know that he is in the hospital denies any chest pain, palpitation, dizziness and sob Objective Last 8 Hrs Date Time Temp Pulse Resp B/P Pulse Ox O2 Delivery O2 Flow Rate FiO2 12/02/16 16:15 Room Air 12/02/16 16:03 36.4 65 18 158/83 94 Room Air Physical Exam: General- no acute distress,confused Head- atraumatic Eyes- PERRL, EOMI ENT- oropharynx clear Neck- supple, no JVD Lungs- clear to auscultation and percussion Heart- regular rhythm, s1/s2 normal Abdomen- normal bowel sounds, soft Extremities- no calf tenderness Neuro- alert, not oriented with time and placed Skin- warm & dry Laboratory Results: Last 24 Hours Test 12/02/16 06:51 White Blood Count 5.68 K/uL Red Blood Count 4.93 M/uL Hemoglobin 14.4 g/dL Hematocrit 42.5 % Mean Corpuscular Volume 86.2 fL Mean Corpuscular Hemoglobin 29.2 pg Mean Corpuscular Hemoglobin Concent 33.9 g/dl RDW Standard Deviation 39.7 fL RDW Coefficient of Variation 12.4 % Platelet Count 214 K/uL Mean Platelet Volume 10.1 fL Sodium Level 143 mmol/L Potassium Level 3.5 mmol/L Chloride Level 105 mmol/L Carbon Dioxide Level 29 mmol/L Anion Gap 9.0 mmol/L Blood Urea Nitrogen 20 mg/dl Creatinine 0.79 mg/dl Est Creatinine Clear Calc Drug Dose 95.9 ml/min Estimated GFR () 104.0 Estimated GFR (Non- 89.7 BUN/Creatinine Ratio 24.9 Random Glucose 88 mg/dl Calcium Level 8.7 mg/dl Magnesium Level 2.5 mg/dl Assessment & Plan MULTIPLE FALLS Likely mechanical falls due to underlying Parkinsonism CT head- negative CT of right shoulder showed no moderate degenerative change. No acute bony abnormality Continue PT and OT evaluation Fall precautions Waiting for approval to discharge to rehab BRADYCARDIA Asymptomatic Normal TSH EKG showed sinus rhythm If bradycardia persist, will consult cardio for eval DEPRESSION/ HALLUCINATIONS/ AGITATION RECENT SUICIDAL IDEATION Discussed with Daughter, he has been taking Zoloft since 2012 Zoloft increased to 100 mg yesterday as per psych recommendation Look much better today awake not sedated Seroquel am dose was discontinue Psych recommended Nuplazid that is use in Parkinson patient with hallucination Pt has the [facility] insurance, mostly insurance will not approve for it Will try as an outpatient to see if they will approve it. Continue current therapy for now. continue monitor pt PARKINSON'S VARIANT Sinemet increased to 1 1/2 tab per Neuro Will continue follow up with neuro once discharge from rehab No change in his med as per neuro LEWY BODY DEMENTIA Continue galantamine CODE STATUS Full code- Would not want prolonged life support. DVT PROPHYLAXIS Lovenox SQ DISPO Lives at home with / daughter. Daughter expressed interest in placement at Parkinson's unit at [facility]. PT/OT and social work job titles consulted. Denied approval to [facility] waiting for approval to rehab Consultants: psych neuro PT/OT Current Inpatient Medications: Current Inpatient Medications Medications (Trade) Dose Ordered Sig/Carlotta Route Start Time Stop Time Status Last Admin Dose Admin Acetaminophen (Tylenol Tab) 650 mg Q4H PRN PO 11/25/16 17:30 12/25/16 17:29 Ondansetron HCl (Zofran Inj) 4 mg Q6H PRN IV 11/25/16 17:30 12/25/16 17:29 Aspirin (Ecotrin Tab) 81 mg QAM PO 11/26/16 09:00 12/26/16 08:59 12/02/16 08:23 81 MG Cyanocobalamin (Vitamin B-12 Tab) 1,000 mcg DAILY PO 11/26/16 09:00 12/26/16 08:59 12/02/16 08:24 1,000 MCG Ammonium Lactate (Lac-Hydrin) 1 appl BID PRN EXT 11/25/16 17:30 12/25/16 17:29 Quetiapine Fumarate (seroQUEL TAB) 25 mg HS PO 11/25/16 21:00 12/25/16 20:59 12/01/16 20:59 25 MG Thiamine HCl (Vitamin B-1 Tab) 100 mg DAILY PO 11/26/16 09:00 12/26/16 08:59 12/02/16 08:24 100 MG Enoxaparin Sodium (Lovenox Inj) 40 mg DAILY@2000 SQ 11/25/16 20:00 12/25/16 19:59 12/01/16 20:59 40 MG Miscellaneous (Iv Fluids Completed) 1 ea PRN PRN N/A 11/25/16 19:15 11/25/17 19:14 Carbidopa/Levodopa (Sinemet 25/ 100MG Tab) 1.5 tab QID PO 11/26/16 21:00 01/15/17 20:59 12/02/16 17:10 1.5 TAB Sertraline HCl (Zoloft Tab) 100 mg QAM PO 11/28/16 09:00 12/28/16 08:59 12/02/16 08:23 100 MG
[2016-12-02] MEDS: ENOXAPARIN 40 MG/0.4 ML SYR SQ SCH (20:35)
[2016-12-02] MEDS: QUETIAPINE FUMARATE 25 MG TAB PO SCH (20:35)
[2016-12-02 23:27] VITALS: BP 150/77; PULSE 60; TEMP 36.6; O2SAT 93
[2016-12-03 07:52] VITALS: BP 142/82; PULSE 56; TEMP 36.9; O2SAT 98
[2016-12-03] MEDS: THIAMINE HCL 100 MG TAB PO SCH (09:01)
[2016-12-03] MEDS: ASPIRIN 81 MG ECTAB PO SCH (09:01)
[2016-12-03] MEDS: SERTRALINE HCL 100 MG TAB PO SCH (09:01)
[2016-12-03] MEDS: CARBIDOPA/LEVODOPA 25/100MG TAB PO SCH ×4 (09:02→20:30)
[2016-12-03] MEDS: CYANOCOBALAMIN 500 MCG TAB (VIT B-12) PO SCH (09:02)
[2016-12-03 15:38] VITALS: BP 154/83; PULSE 90; TEMP 36.6; O2SAT 91
--- NOTE | 2016-12-03 16:19 | Progress Note ---
Medicine Progress Note Date & Time of Visit: Dec 03, 2016 at 16:06. Subjective Pt is able to state his name, location and the year, but has some struggles with having a conversation and answering questions He does not appear in distress and states that at home, his falls were a result of his feet getting caught up and having a shakiness when he walks He reports to live at home with his . Mutliple falls reported at home over the last few weeks prompting evaluation in the ER. Adjustments have been made to meds by psych and Neuro since admission 11/25. Pt states he just got here yesterday. Appears to be pulling at his eyes and has some drainage around his lids today Objective Last 8 Hrs Date Time Temp Pulse Resp B/P Pulse Ox O2 Delivery O2 Flow Rate FiO2 12/03/16 15:38 36.6 90 18 154/83 91 Room Air Physical Exam: GEN: WNWD, in no acute distress, alert and oriented HEENT: NC/AT, normal sclerae, could not evaluate pupils because of significant irritation of eyes, conjunctival discharge present bilaterally CARDIO: reg rate, S1/2 heard without m/g/r LUNGS: CTA bilaterally, no crackles, rales or wheezes, good diaphragmatic excursion ABD: soft, non-tender, non-distended, no rebound or guarding EXTREMITY: no LE swelling or edema, extremities are warm and well-perfused NEURO: doesn't appear to have any gross focal deficits. Difficult to assess 2/ 2 patient difficulty following instruction MUSC: 5/5 strength throughout, no focal deficits. Gait not assessed 2/2 fall risk. SKIN: warm and dry Laboratory Results: no labs this morning. Assessment & Plan 71 yoM admitted after multiple falls at home. Reportedly lives at home with his Has Parkinson's variant (progressive supranuclear palsy/Lewy body dementia) and has had some confusion complicating the situation during this admission. Follow psych and Neuro recs PT/OT eval-rec placement (req max assist and frequent cueing) Cont current care plan. Likely s/c to rehab when avail. Possible conjunctivitis?-start empiric Trimpethoprim/Polymyxin drops in both eyes QID x 5 days. Consultants: psych neuro PT/OT Current Inpatient Medications: Current Inpatient Medications Medications (Trade) Dose Ordered Sig/Carlotta Route Start Time Stop Time Status Last Admin Dose Admin Acetaminophen (Tylenol Tab) 650 mg Q4H PRN PO 11/25/16 17:30 12/25/16 17:29 Ondansetron HCl (Zofran Inj) 4 mg Q6H PRN IV 11/25/16 17:30 12/25/16 17:29 Aspirin (Ecotrin Tab) 81 mg QAM PO 11/26/16 09:00 12/26/16 08:59 12/03/16 09:01 81 MG Cyanocobalamin (Vitamin B-12 Tab) 1,000 mcg DAILY PO 11/26/16 09:00 12/26/16 08:59 12/03/16 09:02 1,000 MCG Ammonium Lactate (Lac-Hydrin) 1 appl BID PRN EXT 11/25/16 17:30 12/25/16 17:29 Quetiapine Fumarate (seroQUEL TAB) 25 mg HS PO 11/25/16 21:00 12/25/16 20:59 12/02/16 20:35 25 MG Thiamine HCl (Vitamin B-1 Tab) 100 mg DAILY PO 11/26/16 09:00 12/26/16 08:59 12/03/16 09:01 100 MG Enoxaparin Sodium (Lovenox Inj) 40 mg DAILY@2000 SQ 11/25/16 20:00 12/25/16 19:59 12/02/16 20:35 40 MG Miscellaneous (Iv Fluids Completed) 1 ea PRN PRN N/A 11/25/16 19:15 11/25/17 19:14 Carbidopa/Levodopa (Sinemet 25/ 100MG Tab) 1.5 tab QID PO 11/26/16 21:00 01/15/17 20:59 12/03/16 13:48 1.5 TAB Sertraline HCl (Zoloft Tab) 100 mg QAM PO 11/28/16 09:00 12/28/16 08:59 12/03/16 09:01 100 MG
[2016-12-03] MEDS: TRIMETHOPRIM/POLYMYXIN B OPB SCH ×2 (16:58→20:30)
[2016-12-03] MEDS: QUETIAPINE FUMARATE 25 MG TAB PO SCH (20:29)
[2016-12-03] MEDS: ENOXAPARIN 40 MG/0.4 ML SYR SQ SCH (20:30)
[2016-12-03 22:53] VITALS: BP 131/87; PULSE 86; TEMP 36.5; O2SAT 95
[2016-12-04 07:04] VITALS: BP 155/87; PULSE 60; TEMP 36.7; O2SAT 95
[2016-12-04] MEDS: TRIMETHOPRIM/POLYMYXIN B OPB SCH ×4 (08:19→20:22)
[2016-12-04] MEDS: THIAMINE HCL 100 MG TAB PO SCH (08:23)
[2016-12-04] MEDS: SERTRALINE HCL 100 MG TAB PO SCH (08:23)
[2016-12-04] MEDS: CARBIDOPA/LEVODOPA 25/100MG TAB PO SCH ×4 (08:23→20:25)
[2016-12-04] MEDS: ASPIRIN 81 MG ECTAB PO SCH (08:24)
[2016-12-04] MEDS: CYANOCOBALAMIN 500 MCG TAB (VIT B-12) PO SCH (08:24)
[2016-12-04 16:13] VITALS: BP 125/70; PULSE 62; TEMP 36.7; O2SAT 95
--- NOTE | 2016-12-04 20:22 | Progress Note ---
Medicine Progress Note Date & Time of Visit: Dec 04, 2016 at 20:08. Subjective ROS performed and patient denies any issues today Reports not feeling that hungry but is amenable to eating. Tolerating PO Reports BM yesterday Objective Last 8 Hrs Date Time Temp Pulse Resp B/P Pulse Ox O2 Delivery O2 Flow Rate FiO2 12/04/16 16:13 36.7 62 18 125/70 95 Room Air 12/04/16 16:00 Room Air Physical Exam: GEN: WNWD, in no acute distress, alert and oriented HEENT: NC/AT, normal sclerae, conjunctivae appear moist and free of drainage, crusting or irritation today. CARDIO: reg rate, S1/2 heard without m/g/r LUNGS: CTA bilaterally, no crackles, rales or wheezes, good diaphragmatic excursion ABD: soft, non-tender, non-distended, no rebound or guarding EXTREMITY: no LE swelling or edema, extremities are warm and well-perfused NEURO: mentating well and appears appropriate, no hallucinations noted, no delirium. MUSC: 5/5 strength throughout, no focal deficits. Very strong and able to follow instructions well today. SKIN: warm and dry Assessment & Plan 71 yoM admitted after multiple falls at home. Reportedly lives at home with his MULTIPLE MECHANICAL FALLS AT HOME- CT head negative on admission. To rehab for strength training in next day or two. PT/OT eval-rec placement (req max assist and frequent cueing). Vitamin D level ordered in am. Normal recent TSH on 11/25. Fall precautions. DEPRESSION/ HALLUCINATIONS/ AGITATION RECENT SUICIDAL IDEATION Taking Zoloft since 2012 Zoloft increased to 100 mg on 11/28 with good result-awake, not sedated and interactive Seroquel am dose was discontinue 12/26 fatigue, cont 25mg qPM (recently added 3 weeks prior to admission per Dr Garay in Neuro) Psych recommended Nuplazid that is use in Parkinson patient with hallucination Pt has the [facility] insurance, mostly insurance will not approve for it May try as an outpatient to see if they will approve it. Continue current therapy for now. Appears conversational and appropriate now two days in a row for this provider. PARKINSON'S VARIANT Sinemet increased to 1 1/2 tab QID on 11/26 per Neuro-good result, less tremulousness noted. Will continue follow up with neuro once discharge from rehab LEWY BODY DEMENTIA Continue galantamine CONJUNCTIVITIS-improved on Trimpethoprim/Polymyxin drops in both eyes QID x 5 days. (began 12/03)-improvement noted and less irritation and crusting/drainage around eyes. CODE STATUS Full code- Would not want prolonged life support. DVT PROPHYLAXIS Lovenox SQ DISPO Lives at home with / daughter. Daughter expressed interest in placement at Parkinson's unit at [facility]. PT/OT and social media community manager consulted. Denied approval to [facility] waiting for approval to rehab DO Clemente [facility] Hospitalist Consultants: psych neuro PT/OT Current Inpatient Medications: Current Inpatient Medications Medications (Trade) Dose Ordered Sig/Carlotta Route Start Time Stop Time Status Last Admin Dose Admin Acetaminophen (Tylenol Tab) 650 mg Q4H PRN PO 11/25/16 17:30 12/25/16 17:29 Ondansetron HCl (Zofran Inj) 4 mg Q6H PRN IV 11/25/16 17:30 12/25/16 17:29 Aspirin (Ecotrin Tab) 81 mg QAM PO 11/26/16 09:00 12/26/16 08:59 12/04/16 08:24 81 MG Cyanocobalamin (Vitamin B-12 Tab) 1,000 mcg DAILY PO 11/26/16 09:00 12/26/16 08:59 12/04/16 08:24 1,000 MCG Ammonium Lactate (Lac-Hydrin) 1 appl BID PRN EXT 11/25/16 17:30 12/25/16 17:29 Quetiapine Fumarate (seroQUEL TAB) 25 mg HS PO 11/25/16 21:00 12/25/16 20:59 12/03/16 20:29 25 MG Thiamine HCl (Vitamin B-1 Tab) 100 mg DAILY PO 11/26/16 09:00 12/26/16 08:59 12/04/16 08:23 100 MG Enoxaparin Sodium (Lovenox Inj) 40 mg DAILY@2000 SQ 11/25/16 20:00 12/25/16 19:59 12/03/16 20:30 40 MG Miscellaneous (Iv Fluids Completed) 1 ea PRN PRN N/A 11/25/16 19:15 11/25/17 19:14 Carbidopa/Levodopa (Sinemet 25/ 100MG Tab) 1.5 tab QID PO 11/26/16 21:00 01/15/17 20:59 12/04/16 17:00 1.5 TAB Sertraline HCl (Zoloft Tab) 100 mg QAM PO 11/28/16 09:00 12/28/16 08:59 12/04/16 08:23 100 MG Polymyxin/ Trimethoprim Sulfate (Polytrim Oph Soln) 1 drops QID OPB 12/03/16 17:00 12/08/16 16:59 12/04/16 17:01 1 DROPS
[2016-12-04] MEDS: QUETIAPINE FUMARATE 25 MG TAB PO SCH (20:23)
[2016-12-04] MEDS: ENOXAPARIN 40 MG/0.4 ML SYR SQ SCH (20:23)
[2016-12-05 00:17] VITALS: BP 153/87; PULSE 64; TEMP 36.7; O2SAT 96
[2016-12-05 07:22] LABS: HEMATOCRIT 43.2 % (42-52); MEAN CORPUSCULAR HEMOGLOBIN 30.3 pg (25-34); MEAN CORPUSCULAR HGB CONC 35.6 g/dl (32-36); PLATELET COUNT 253 K/uL (130-400); RED BLOOD COUNT 5.08 M/uL (4.7-6.1); WHITE BLOOD COUNT 7.57 K/uL (4.8-10.8)
[2016-12-05 07:51] VITALS: BP 158/80; PULSE 60; TEMP 36.7; O2SAT 96
[2016-12-05 07:51] LABS: BUN/CREATININE RATIO 25.5 (10-20); CREATININE 0.77 mg/dl (0.60-1.40); MAGNESIUM 2.4 mg/dl (1.8-2.4); POTASSIUM 3.7 mmol/L (3.5-5.1)
[2016-12-05] MEDS: SERTRALINE HCL 100 MG TAB PO SCH (09:09)
[2016-12-05] MEDS: TRIMETHOPRIM/POLYMYXIN B OPB SCH ×4 (09:09→21:28)
[2016-12-05] MEDS: CARBIDOPA/LEVODOPA 25/100MG TAB PO SCH ×4 (09:09→21:29)
[2016-12-05] MEDS: THIAMINE HCL 100 MG TAB PO SCH (09:09)
[2016-12-05] MEDS: ASPIRIN 81 MG ECTAB PO SCH (09:10)
[2016-12-05] MEDS: CYANOCOBALAMIN 500 MCG TAB (VIT B-12) PO SCH (09:10)
[2016-12-05] MEDS: ERGOCALCIFEROL 50,000 INTER.UNIT CAP PO SCH (09:25)
[2016-12-05 15:04] VITALS: BP 151/79; PULSE 69; TEMP 36.9; O2SAT 95
[2016-12-05 20:01] VITALS: O2SAT 95
[2016-12-05] MEDS: ENOXAPARIN 40 MG/0.4 ML SYR SQ SCH (21:28)
[2016-12-05] MEDS: QUETIAPINE FUMARATE 25 MG TAB PO SCH (21:28)
[2016-12-05 22:52] VITALS: BP 128/69; PULSE 51; TEMP 37.2; O2SAT 96
--- NOTE | 2016-12-05 23:52 | Progress Note ---
Medicine Progress Note Date & Time of Visit: Dec 05, 2016 at 15:17. Subjective Pt resting comfortably in bed ROS is negative Pt does have some active hallucinations while I was in the room tonight, but otherwise is alert and oriented and stable Tolerating PO Reportedly ambulated with walker today Objective Last 8 Hrs Date Time Temp Pulse Resp B/P Pulse Ox O2 Delivery O2 Flow Rate FiO2 12/05/16 15:04 36.9 69 18 151/79 95 Room Air 12/05/16 08:00 Room Air 12/05/16 07:51 36.7 60 18 158/80 96 Room Air Physical Exam: GEN: WNWD, in no acute distress, alert and oriented HEENT: NC/AT, normal sclerae, conjunctivae appear moist and free of drainage, crusting or irritation today. CARDIO: reg rate, S1/2 heard without m/g/r LUNGS: CTA bilaterally, no crackles, rales or wheezes, good diaphragmatic excursion ABD: soft, non-tender, non-distended, no rebound or guarding EXTREMITY: no LE swelling or edema, extremities are warm and well-perfused NEURO: mentating well and appears appropriate, + hallucinations noted, no delirium. MUSC: 5/5 strength throughout, no focal deficits. Very strong and able to follow instructions well today. SKIN: warm and dry Laboratory Results: Last 24 Hours Test 12/05/16 07:01 White Blood Count 7.57 K/uL Red Blood Count 5.08 M/uL Hemoglobin 15.4 g/dL Hematocrit 43.2 % Mean Corpuscular Volume 85.0 fL Mean Corpuscular Hemoglobin 30.3 pg Mean Corpuscular Hemoglobin Concent 35.6 g/dl RDW Standard Deviation 38.2 fL RDW Coefficient of Variation 12.4 % Platelet Count 253 K/uL Mean Platelet Volume 10.0 fL Sodium Level 144 mmol/L Potassium Level 3.7 mmol/L Chloride Level 108 mmol/L Carbon Dioxide Level 26 mmol/L Anion Gap 10.0 mmol/L Blood Urea Nitrogen 20 mg/dl Creatinine 0.77 mg/dl Est Creatinine Clear Calc Drug Dose 98.4 ml/min Estimated GFR () 105.1 Estimated GFR (Non- 90.7 BUN/Creatinine Ratio 25.5 Random Glucose 105 mg/dl Calcium Level 9.0 mg/dl Magnesium Level 2.4 mg/dl 25-Hydroxy Vitamin D Total 25.3 ng/ml Assessment & Plan 71 yoM wt Lewy Body dementia, Parkinson's Disease and possible progressive supranuclear palsy who presented after multiple mechanical falls at home. Was evaluated by psychiatry for reports of suicidal ideations and hallucinations in the context of a h/o depression without prior suicide attempts, a recent UTI for which he was taking antibiotics and also recently starting on Seroquel within the past 3 weeks. MULTIPLE MECHANICAL FALLS AT HOME- CT head negative on admission. To rehab for strength training in next day or two. PT/OT eval-rec placement (req max assist and frequent cueing). Vitamin D level was 25-replacement was started. Normal recent TSH on 11/25. Fall precautions. DEPRESSION/ HALLUCINATIONS/ AGITATION RECENT SUICIDAL IDEATION Taking Zoloft since 2012 Zoloft increased to 100 mg on 11/28 with good result-awake, not sedated and interactive Seroquel am dose was discontinue 12/26 fatigue, cont 25mg qPM (recently added 3 weeks prior to admission per Dr Garay in Neuro) Psych recommended Nuplazid that is use in Parkinson patient with hallucination Pt has the [place] insurance, mostly insurance will not approve for it May try as an outpatient to see if they will approve it. Continue current therapy for now. Appears conversational and appropriate now two days in a row for this provider. PARKINSON'S VARIANT Sinemet increased to 1 1/2 tab QID on 11/26 per Neuro-good result, less tremulousness noted. Will continue follow up with neuro once discharge from rehab LEWY BODY DEMENTIA Continue galantamine CONJUNCTIVITIS-improved on Trimpethoprim/Polymyxin drops in both eyes QID x 5 days. (began 12/03)-improvement noted and less irritation and crusting/drainage around eyes. CODE STATUS Full code- Would not want prolonged life support. DVT PROPHYLAXIS Lovenox SQ DISPO Lives at home with / daughter. Daughter expressed interest in placement at Parkinson's unit at [facility]. PT/OT and psychiatric social worker consulted. Denied approval to [facility] Consultants: psych neuro PT/OT Current Inpatient Medications: Current Inpatient Medications Medications (Trade) Dose Ordered Sig/Carlotta Route Start Time Stop Time Status Last Admin Dose Admin Acetaminophen (Tylenol Tab) 650 mg Q4H PRN PO 11/25/16 17:30 12/25/16 17:29 Ondansetron HCl (Zofran Inj) 4 mg Q6H PRN IV 11/25/16 17:30 12/25/16 17:29 Aspirin (Ecotrin Tab) 81 mg QAM PO 11/26/16 09:00 12/26/16 08:59 12/05/16 09:10 81 MG Cyanocobalamin (Vitamin B-12 Tab) 1,000 mcg DAILY PO 11/26/16 09:00 12/26/16 08:59 12/05/16 09:10 1,000 MCG Ammonium Lactate (Lac-Hydrin) 1 appl BID PRN EXT 11/25/16 17:30 12/25/16 17:29 Quetiapine Fumarate (seroQUEL TAB) 25 mg HS PO 11/25/16 21:00 12/25/16 20:59 12/04/16 20:23 25 MG Thiamine HCl (Vitamin B-1 Tab) 100 mg DAILY PO 11/26/16 09:00 12/26/16 08:59 12/05/16 09:09 100 MG Enoxaparin Sodium (Lovenox Inj) 40 mg DAILY@2000 SQ 11/25/16 20:00 12/25/16 19:59 12/04/16 20:23 40 MG Miscellaneous (Iv Fluids Completed) 1 ea PRN PRN N/A 11/25/16 19:15 11/25/17 19:14 Carbidopa/Levodopa (Sinemet 25/ 100MG Tab) 1.5 tab QID PO 11/26/16 21:00 01/15/17 20:59 12/05/16 14:04 1.5 TAB Sertraline HCl (Zoloft Tab) 100 mg QAM PO 11/28/16 09:00 12/28/16 08:59 12/05/16 09:09 100 MG Polymyxin/ Trimethoprim Sulfate (Polytrim Oph Soln) 1 drops QID OPB 12/03/16 17:00 12/08/16 16:59 12/05/16 14:04 1 DROPS Ergocalciferol (Vitamin D Cap) 50,000 interunit Q7D PO 12/05/16 09:00 01/04/17 08:59 12/05/16 09:25 50,000 INTERUNIT
[2016-12-06 04:31] VITALS: O2SAT 96
[2016-12-06 08:00] VITALS: O2SAT 96
[2016-12-06 08:01] VITALS: BP 138/78; PULSE 48; TEMP 36.6; O2SAT 97
[2016-12-06] MEDS: CYANOCOBALAMIN 500 MCG TAB (VIT B-12) PO SCH (08:32)
[2016-12-06] MEDS: TRIMETHOPRIM/POLYMYXIN B OPB SCH ×4 (08:32→20:51)
[2016-12-06] MEDS: ASPIRIN 81 MG ECTAB PO SCH (08:32)
[2016-12-06] MEDS: CARBIDOPA/LEVODOPA 25/100MG TAB PO SCH ×4 (08:33→20:54)
[2016-12-06] MEDS: THIAMINE HCL 100 MG TAB PO SCH (08:33)
[2016-12-06] MEDS: SERTRALINE HCL 100 MG TAB PO SCH (08:33)
--- NOTE | 2016-12-06 12:02 | Psychiatric Progress Notes ---
Psychiatric Progress Note Date of Service Dec 06, 2016. Notes ID: Patient followed by liaison nurse. Initial consultation by EVE Siu dated 11/26/15 recommended increase Zoloft to assist with agitation. Patient was on Seroquel 50 mg at hs upon admission. Sinemet was increased by neurology and a provider wrote to add am dose of Seroquel. CC: primary team noted responding to internal stimuli last pm HPI: cooperative with bath this am, alert, aware at [facility] and looking for placement, etc. Better range of motion with no resting tremor. ROS: denies physical complaints MSE: again more facial expression than yesterday, answered simple questions with less delay in response, better speech articulartion. Imp: parkinsons disease with lewbody dementia/delirium Plan: continue Seroquel hs, didn't tolerate daytime dosing. Zoloft recently increased.
[2016-12-06 15:21] VITALS: BP 127/72; PULSE 72; TEMP 36.4; O2SAT 96
[2016-12-06] MEDS: ENOXAPARIN 40 MG/0.4 ML SYR SQ SCH (20:00)
[2016-12-06] MEDS: QUETIAPINE FUMARATE 25 MG TAB PO SCH (20:51)
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
[2016-12-06 23:55] VITALS: BP 157/83; PULSE 56; TEMP 36.6; O2SAT 95
[2016-12-07] VITALS (7 sets, daily range): BP systolic 125–136; BP diastolic 72–88; PULSE 50–71; TEMP 36.6–36.9; O2SAT 93–97
[2016-12-07] MEDS: TRIMETHOPRIM/POLYMYXIN B OPB SCH ×4 (08:36→21:48)
[2016-12-07] MEDS: THIAMINE HCL 100 MG TAB PO SCH (08:37)
[2016-12-07] MEDS: CARBIDOPA/LEVODOPA 25/100MG TAB PO SCH ×4 (08:37→21:47)
[2016-12-07] MEDS: SERTRALINE HCL 100 MG TAB PO SCH (08:38)
[2016-12-07] MEDS: CYANOCOBALAMIN 500 MCG TAB (VIT B-12) PO SCH (08:38)
[2016-12-07] MEDS: ASPIRIN 81 MG ECTAB PO SCH (08:39)
--- NOTE | 2016-12-07 16:50 | Progress Note ---
Medicine Progress Note Date & Time of Visit: Dec 07, 2016 at 16:13. Subjective Doing well today Denies any symptoms, but says he understands that he requires assistance with getting around places. He tells me that he has an exercise bike at home, and he would enjoy getting back into that He reports his daughter, Tamie, came by today and visited with him We discussed our experiences in the [facility], today, and he appears to have an excellent memory of events surrounding [place], etc. 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 CARDIO: reg rate, S1/2 heard without m/g/r LUNGS: CTA bilaterally, no crackles, rales or wheezes, good diaphragmatic excursion ABD: soft, non-tender, non-distended, no rebound or guarding EXTREMITY: no LE swelling or edema, extremities are warm and well-perfused NEURO: mentating well and appears appropriate, no delirium. MUSC: no gross focal deficits, gait not assessed SKIN: warm and dry Assessment & Plan 71 yoM wtih Lewy Body dementia, Parkinson's Disease and possible progressive supranuclear palsy who presented after multiple mechanical falls at home. Was evaluated by psychiatry for reports of suicidal ideations and hallucinations in the context of a h/o depression without prior suicide attempts, a recent UTI for which he was taking antibiotics and also recently starting on Seroquel within the past 3 weeks. MULTIPLE MECHANICAL FALLS AT HOME- CT head negative on admission. To rehab for strength training in next day or two. Evaluated by Office of Aging yesterday, PT/OT eval-rec placement (req max assist and frequent cueing). Vitamin D level was 25-replacement was started. Normal recent TSH on 11/25. Fall precautions. DEPRESSION/ HALLUCINATIONS/ AGITATION RECENT SUICIDAL IDEATION Taking Zoloft since 2012 Zoloft increased to 100 mg on 11/28 with good result-awake, not sedated and interactive Seroquel am dose was discontinue 12/26 fatigue, cont 25mg qPM (recently added 3 weeks prior to admission per Dr Garay in Neuro) Psych recommended Nuplazid that is use in Parkinson patient with hallucination Pt [place] the [place] insurance, mostly insurance will not approve for it May try as an outpatient to see if they will approve it. Continue current therapy for now. Appears conversational and appropriate No hallucinations today PARKINSON'S [facility]I[employer] Sinemet increased to 1 1/2 tab QID on 11/26 per Neuro-good result, less tremulousness noted. Will continue follow up with neuro once discharge from rehab LEWY BODY DEMENTIA Continue galantamine CONJUNCTIVITIS-improved on Trimpethoprim/Polymyxin drops in both eyes QID x 5 days. (began 12/03)-improvement noted and less irritation and crusting/drainage around eyes. CODE STATUS Full code- Would not want prolonged life support. DVT PROPHYLAXIS Lovenox SQ DISPO Lives at home with / daughter. Daughter expressed interest in placement at Parkinson's unit at [facility]. PT/OT and child protective services social worker consulted. Denied approval to [facility] waiting for approval to rehab Mckayla Champagne DO [facility] Hospitalist Consultants: psych neuro PT/OT Current Inpatient Medications: Current Inpatient Medications Medications (Trade) Dose Ordered Sig/Carlotta Route Start Time Stop Time Status Last Admin Dose Admin Acetaminophen (Tylenol Tab) 650 mg Q4H PRN PO 11/25/16 17:30 12/25/16 17:29 Ondansetron HCl (Zofran Inj) 4 mg Q6H PRN IV 11/25/16 17:30 12/25/16 17:29 Aspirin (Ecotrin Tab) 81 mg QAM PO 11/26/16 09:00 12/26/16 08:59 12/07/16 08:39 81 MG Cyanocobalamin (Vitamin B-12 Tab) 1,000 mcg DAILY PO 11/26/16 09:00 12/26/16 08:59 12/07/16 08:38 1,000 MCG Ammonium Lactate (Lac-Hydrin) 1 appl BID PRN EXT 11/25/16 17:30 12/25/16 17:29 Quetiapine Fumarate (seroQUEL TAB) 25 mg HS PO 11/25/16 21:00 12/25/16 20:59 12/06/16 20:51 25 MG Thiamine HCl (Vitamin B-1 Tab) 100 mg DAILY PO 11/26/16 09:00 12/26/16 08:59 12/07/16 08:37 100 MG Enoxaparin Sodium (Lovenox Inj) 40 mg DAILY@2000 SQ 11/25/16 20:00 12/25/16 19:59 12/05/16 21:28 40 MG Miscellaneous (Iv Fluids Completed) 1 ea PRN PRN N/A 11/25/16 19:15 11/25/17 19:14 Carbidopa/Levodopa (Sinemet 25/ 100MG Tab) 1.5 tab QID PO 11/26/16 21:00 01/15/17 20:59 12/07/16 12:20 1.5 TAB Sertraline HCl (Zoloft Tab) 100 mg QAM PO 11/28/16 09:00 12/28/16 08:59 12/07/16 08:38 100 MG Polymyxin/ Trimethoprim Sulfate (Polytrim Oph Soln) 1 drops QID OPB 12/03/16 17:00 12/08/16 16:59 12/07/16 12:19 1 DROPS Ergocalciferol (Vitamin D Cap) 50,000 interunit Q7D PO 12/05/16 09:00 01/04/17 08:59 12/05/16 09:25 50,000 INTERUNIT
[2016-12-07] MEDS: QUETIAPINE FUMARATE 25 MG TAB PO SCH (21:46)
[2016-12-07] MEDS: ENOXAPARIN 40 MG/0.4 ML SYR SQ SCH (21:48)
[2016-12-08 01:40] VITALS: O2SAT 94
[2016-12-08 07:27] LABS: HEMATOCRIT 42.2 % (42-52); MEAN CELL VOLUME 86.7 fL (80-100); MEAN CORPUSCULAR HEMOGLOBIN 29.6 pg (25-34); MEAN CORPUSCULAR HGB CONC 34.1 g/dl (32-36); MEAN PLATELET VOLUME 10.1 fL (7.4-10.4); PLATELET COUNT 226 K/uL (130-400); RED BLOOD COUNT 4.87 M/uL (4.7-6.1); WHITE BLOOD COUNT 7.51 K/uL (4.8-10.8)
[2016-12-08 07:58] LABS: CREATININE 0.79 mg/dl (0.60-1.40)
[2016-12-08 08:00] VITALS: O2SAT 95
[2016-12-08 08:02] VITALS: BP 152/77; PULSE 51; TEMP 36.3; O2SAT 95
[2016-12-08] MEDS: THIAMINE HCL 100 MG TAB PO SCH (09:15)
[2016-12-08] MEDS: CYANOCOBALAMIN 500 MCG TAB (VIT B-12) PO SCH (09:15)
[2016-12-08] MEDS: CARBIDOPA/LEVODOPA 25/100MG TAB PO SCH ×4 (09:15→20:50)
[2016-12-08] MEDS: SERTRALINE HCL 100 MG TAB PO SCH (09:15)
[2016-12-08] MEDS: TRIMETHOPRIM/POLYMYXIN B OPB SCH ×2 (09:16→14:02)
[2016-12-08] MEDS: ASPIRIN 81 MG ECTAB PO SCH (09:16)
[2016-12-08 15:41] VITALS: BP 135/73; PULSE 52; TEMP 36.8; O2SAT 97
[2016-12-08] MEDS ORDERED: POLYETHYLENE (MIRALAX) 17 GM PACK PO ONE (18:08)
--- NOTE | 2016-12-08 18:17 | Progress Note ---
Medicine Progress Note Date & Time of Visit: Dec 08, 2016 at 14:40. Subjective Flat affect States that he is bored and wants to transfer on to rehab Appears frustrated at requiring so much help to move around Per nurse 3 smear BMs today tolerating PO today ROS is negative Started talking about going somewhere naked, and then asked if someone was going to take him to breakfast (it is nighttime) But then started telling me that since he got diagnosed with Parkinson's he hasn 't been able to read as well. Objective Last 8 Hrs Date Time Temp Pulse Resp B/P Pulse Ox O2 Delivery O2 Flow Rate FiO2 12/08/16 08:02 36.3 51 16 152/77 95 Room Air 12/08/16 08:00 95 Room Air Physical Exam: GEN: WNWD, in no acute distress, alert and appropriate HEENT: NC/AT, normal sclerae, conjunctivae appear moist and free of drainage, crusting or irritation today. CARDIO: reg rate, S1/2 heard without m/g/r LUNGS: CTA bilaterally, no crackles, rales or wheezes, good diaphragmatic excursion ABD: soft, non-tender, non-distended, no rebound or guarding EXTREMITY: no LE swelling or edema, extremities are warm and well-perfused NEURO: mentating well and appears appropriate, no delirium. Some hallucinations but comes back to center MUSC: no gross focal deficits, gait not assessed SKIN: warm and dry Laboratory Results: Last 24 Hours Test 12/08/16 06:40 White Blood Count 7.51 K/uL Red Blood Count 4.87 M/uL Hemoglobin 14.4 g/dL Hematocrit 42.2 % Mean Corpuscular Volume 86.7 fL Mean Corpuscular Hemoglobin 29.6 pg Mean Corpuscular Hemoglobin Concent 34.1 g/dl RDW Standard Deviation 40.2 fL RDW Coefficient of Variation 12.6 % Platelet Count 226 K/uL Mean Platelet Volume 10.1 fL Creatinine 0.79 mg/dl Est Creatinine Clear Calc Drug Dose 95.9 ml/min Estimated GFR () 104.0 Estimated GFR (Non- 89.7 Assessment & Plan 71 yoM with Lewy Body dementia, Parkinson's Disease and possible progressive supranuclear palsy who presented after multiple mechanical falls at home. Was evaluated by psychiatry for reports of suicidal ideations and hallucinations in the context of a h/o depression without prior suicide attempts, a recent UTI for which he was taking antibiotics and also recently starting on Seroquel within the past 3 weeks. MULTIPLE MECHANICAL FALLS AT HOME- CT head negative on admission. To rehab for strength training in next day or two. Evaluated by Office of Aging on 12/06, PT/ OT eval-rec placement (req max assist and frequent cueing). Vitamin D level was 25-replacement was started. Normal recent TSH on 11/25. Fall precautions. Still requiring max assist with transfers DEPRESSION/ HALLUCINATIONS/ AGITATION RECENT SUICIDAL IDEATION Taking Zoloft since 2012 Zoloft increased to 100 mg on 11/28 with good result-awake, not sedated and interactive Seroquel am dose was discontinue 12/26 fatigue, cont 25mg qPM (recently added 3 weeks prior to admission per Dr Garay in Neuro) Psych recommended Nuplazid that is use in Parkinson patient with hallucination Pt has the [place] insurance, mostly insurance will not approve for it May try as an outpatient to see if they will approve it. Continue current therapy for now. Appears conversational and appropriate Some hallucinations today during our discussion but appears to come back to reality very quickly PARKINSON'S VARI[employer] Sinemet increased to 1 1/2 tab QID on 11/26 per Neuro-good result, less tremulousness noted. Will continue follow up with neuro once discharge from rehab LEWY BODY DEMENTIA Continue galantamine CONJUNCTIVITIS-improved on Trimpethoprim/Polymyxin drops in both eyes QID x 5 days. (began 12/03)-improvement noted and less irritation and crusting/drainage around eyes. CONSTIPATION-3 smears per nurse. Ordered Miralax daily to assist with movement- hold for loose stools. CODE STATUS Full code- Would not want prolonged life support. DVT PROPHYLAXIS Lovenox SQ DISPO Lives at home with / daughter. Daughter expressed interest in placement at Parkinson's unit at [facility]. PT/OT and mental health social worker consulted. Denied approval to [facility] waiting for approval to rehab DO Clemente Templeton Hospitalist Consultants: psych neuro PT/OT Current Inpatient Medications: Current Inpatient Medications Medications (Trade) Dose Ordered Sig/Carlotta Route Start Time Stop Time Status Last Admin Dose Admin Acetaminophen (Tylenol Tab) 650 mg Q4H PRN PO 11/25/16 17:30 12/25/16 17:29 Ondansetron HCl (Zofran Inj) 4 mg Q6H PRN IV 11/25/16 17:30 12/25/16 17:29 Aspirin (Ecotrin Tab) 81 mg QAM PO 11/26/16 09:00 12/26/16 08:59 12/08/16 09:16 81 MG Cyanocobalamin (Vitamin B-12 Tab) 1,000 mcg DAILY PO 11/26/16 09:00 12/26/16 08:59 12/08/16 09:15 1,000 MCG Ammonium Lactate (Lac-Hydrin) 1 appl BID PRN EXT 11/25/16 17:30 12/25/16 17:29 Quetiapine Fumarate (seroQUEL TAB) 25 mg HS PO 11/25/16 21:00 12/25/16 20:59 12/07/16 21:46 25 MG Thiamine HCl (Vitamin B-1 Tab) 100 mg DAILY PO 11/26/16 09:00 12/26/16 08:59 12/08/16 09:15 100 MG Enoxaparin Sodium (Lovenox Inj) 40 mg DAILY@2000 SQ 11/25/16 20:00 12/25/16 19:59 12/07/16 21:48 40 MG Miscellaneous (Iv Fluids Completed) 1 ea PRN PRN N/A 11/25/16 19:15 11/25/17 19:14 Carbidopa/Levodopa (Sinemet 25/ 100MG Tab) 1.5 tab QID PO 11/26/16 21:00 01/15/17 20:59 12/08/16 14:02 1.5 TAB Sertraline HCl (Zoloft Tab) 100 mg QAM PO 11/28/16 09:00 12/28/16 08:59 12/08/16 09:15 100 MG Polymyxin/ Trimethoprim Sulfate (Polytrim Oph Soln) 1 drops QID OPB 12/03/16 17:00 12/08/16 16:59 12/08/16 14:02 1 DROPS Ergocalciferol (Vitamin D Cap) 50,000 interunit Q7D PO 12/05/16 09:00 01/04/17 08:59 12/05/16 09:25 50,000 INTERUNIT
[2016-12-08] MEDS: ENOXAPARIN 40 MG/0.4 ML SYR SQ SCH (20:07)
[2016-12-08] MEDS: QUETIAPINE FUMARATE 25 MG TAB PO SCH (20:50)
[2016-12-08 23:01] VITALS: BP 113/70; PULSE 61; TEMP 36.5; O2SAT 95
[2016-12-09] VITALS: O2SAT 95
[2016-12-09 07:50] VITALS: BP 155/79; PULSE 56; TEMP 36.6; O2SAT 96
[2016-12-09 08:00] VITALS: O2SAT 96
[2016-12-09] MEDS: SERTRALINE HCL 100 MG TAB PO SCH (08:40)
[2016-12-09] MEDS: ASPIRIN 81 MG ECTAB PO SCH (08:40)
[2016-12-09] MEDS: CARBIDOPA/LEVODOPA 25/100MG TAB PO SCH ×4 (08:40→21:03)
[2016-12-09] MEDS: THIAMINE HCL 100 MG TAB PO SCH (08:40)
[2016-12-09] MEDS: CYANOCOBALAMIN 500 MCG TAB (VIT B-12) PO SCH (08:40)
[2016-12-09] MEDS: POLYETHYLENE (MIRALAX) 17 GM PACK PO SCH (08:41)
[2016-12-09 15:42] VITALS: BP 102/65; PULSE 66; TEMP 36.5; O2SAT 97
--- NOTE | 2016-12-09 16:17 | Progress Note ---
Medicine Progress Note Date & Time of Visit: Dec 09, 2016 at 16:11. Subjective No changes today Patient declines any issues or symptoms Reports that he is tolerating food. I spoke with the nurse regarding getting him in the shower, and currently he is simply too high of a fall risk. Objective Last 8 Hrs Date Time Temp Pulse Resp B/P Pulse Ox O2 Delivery O2 Flow Rate FiO2 12/09/16 15:42 36.5 66 18 102/65 97 Room Air Physical Exam: GEN: WNWD, in no acute distress, alert and appropriate, notable odor and smells dingy HEENT: NC/AT, normal sclerae, conjunctivae appear moist and free of drainage, crusting or irritation today. CARDIO: reg rate, S1/2 heard without m/g/r LUNGS: CTA bilaterally, no crackles, rales or wheezes, good diaphragmatic excursion ABD: soft, non-tender, non-distended, no rebound or guarding EXTREMITY: no LE swelling or edema, extremities are warm and well-perfused NEURO: mentating well and appears appropriate, no delirium. MUSC: no gross focal deficits, gait not assessed SKIN: warm and dry Assessment & Plan 71 yoM with Lewy Body dementia, Parkinson's Disease and possible progressive supranuclear palsy who presented after multiple mechanical falls at home. Was evaluated by psychiatry for reports of suicidal ideations and hallucinations in the context of a h/o depression without prior suicide attempts, a recent UTI for which he was taking antibiotics and also recently starting on Seroquel within the past 3 weeks. MULTIPLE MECHANICAL FALLS AT HOME- Parkinson's patient, CT head negative on admission. To rehab for strength training in next day or two. Evaluated by Office of Aging on 12/06, PT/OT eval-rec placement (req max assist and frequent cueing). Vitamin D level was 25-replacement was started. Normal recent TSH on 11/25. Fall precautions. Still requiring max assist with transfers VITAMIN D INSUFFICIENCY: 25OH was 25, started on ergocalciferol with one dose given in the hospital. Cont weekly for a total 12 weeks. DEPRESSION/ HALLUCINATIONS/ AGITATION RECENT SUICIDAL IDEATION Taking Zoloft since 2012 Zoloft increased to 100 mg on 11/28 with good result-awake, not sedated and interactive Seroquel am dose was discontinue 2/ fatigue, cont 25mg qPM (recently added 3 weeks prior to admission per Dr aGray in Neuro) Psych recommended Nuplazid that is use in Parkinson patient with hallucination [place], [place] insurance will not [place] for it May try as an outpatient to see if they will approve it. Continue current therapy for now. Appears conversational and appropriate Hallucinations are intermittent, but he is clear for the most part-->cont Seroquel and Zoloft. Awaiting placement to rehab P[facility]INSON'S VARI[employer] Sinemet increased to 1 1/2 tab QID on 11/26 per Neuro-good result, less tremulousness noted. Will need follow up with neuro once discharge from rehab LEWY BODY DEMENTIA Continue galantamine CONJUNCTIVITIS-improved on Trimpethoprim/Polymyxin drops in both eyes QID x 5 days. (began 12/03)-improvement noted and less irritation and crusting/drainage around eyes. Treatment completed and issue resolved. CONSTIPATION-3 smears per nurse. Ordered Miralax daily to assist with movement- hold for loose stools. One BM today. CODE STATUS Full code- Would not want prolonged life support. DVT PROPHYLAXIS Lovenox SQ DISPO Lives at home with / daughter. Daughter expressed interest in placement at Parkinson's unit at [facility]. PT/OT and manager social work consulted. Denied approval to [facility] waiting for approval to [facility]: psych neuro PT/OT Current Inpatient Medications: Current Inpatient Medications Medications (Trade) Dose Ordered Sig/Carlotta Route Start Time Stop Time Status Last Admin Dose Admin Acetaminophen (Tylenol Tab) 650 mg Q4H PRN PO 11/25/16 17:30 12/25/16 17:29 Ondansetron HCl (Zofran Inj) 4 mg Q6H PRN IV 11/25/16 17:30 12/25/16 17:29 Aspirin (Ecotrin Tab) 81 mg QAM PO 11/26/16 09:00 12/26/16 08:59 12/09/16 08:40 81 MG Cyanocobalamin (Vitamin B-12 Tab) 1,000 mcg DAILY PO 11/26/16 09:00 12/26/16 08:59 12/09/16 08:40 1,000 MCG Ammonium Lactate (Lac-Hydrin) 1 appl BID PRN EXT 11/25/16 17:30 12/25/16 17:29 Quetiapine Fumarate (seroQUEL TAB) 25 mg HS PO 11/25/16 21:00 12/25/16 20:59 12/08/16 20:50 25 MG Thiamine HCl (Vitamin B-1 Tab) 100 mg DAILY PO 11/26/16 09:00 12/26/16 08:59 12/09/16 08:40 100 MG Enoxaparin Sodium (Lovenox Inj) 40 mg DAILY@2000 SQ 11/25/16 20:00 12/25/16 19:59 12/08/16 20:07 40 MG Miscellaneous (Iv Fluids Completed) 1 ea PRN PRN N/A 11/25/16 19:15 11/25/17 19:14 Carbidopa/Levodopa (Sinemet 25/ 100MG Tab) 1.5 tab QID PO 11/26/16 21:00 01/15/17 20:59 12/09/16 13:19 1.5 TAB Sertraline HCl (Zoloft Tab) 100 mg QAM PO 11/28/16 09:00 12/28/16 08:59 12/09/16 08:40 100 MG Ergocalciferol (Vitamin D Cap) 50,000 interunit Q7D PO 12/05/16 09:00 01/04/17 08:59 12/05/16 09:25 50,000 INTERUNIT Polyethylene (Miralax Powder Packet) 17 gm DAILY PO 12/09/16 09:00 01/08/17 08:59 12/09/16 08:41 17 GM
[2016-12-09] MEDS: ENOXAPARIN 40 MG/0.4 ML SYR SQ SCH (19:52)
[2016-12-09] MEDS: QUETIAPINE FUMARATE 25 MG TAB PO SCH (21:03)
[2016-12-09 23:18] VITALS: BP 128/73; PULSE 64; TEMP 36.6; O2SAT 96
[2016-12-10 06:49] VITALS: BP 143/71; PULSE 51; TEMP 36.6; O2SAT 96
[2016-12-10 08:00] VITALS: O2SAT 96
[2016-12-10] MEDS: THIAMINE HCL 100 MG TAB PO SCH (08:19)
[2016-12-10] MEDS: POLYETHYLENE (MIRALAX) 17 GM PACK PO SCH (08:19)
[2016-12-10] MEDS: CYANOCOBALAMIN 500 MCG TAB (VIT B-12) PO SCH (08:19)
[2016-12-10] MEDS: CARBIDOPA/LEVODOPA 25/100MG TAB PO SCH ×4 (08:19→20:04)
[2016-12-10] MEDS: SERTRALINE HCL 100 MG TAB PO SCH (08:19)
[2016-12-10] MEDS: ASPIRIN 81 MG ECTAB PO SCH (08:19)
[2016-12-10 16:00] VITALS: O2SAT 96
[2016-12-10 16:01] VITALS: BP 145/83; PULSE 67; TEMP 36.4; O2SAT 94
--- NOTE | 2016-12-10 19:26 | Progress Note ---
Internal Med Progress Note Date of Service: Dec 10, 2016. Provider Documentation: SUBJECTIVE: alert and awake oriented to name only afebrile does not obey commands OBJECTIVE: Vital Signs-as noted below Exam: General-alert and awake ENT-normal hearing Neck-no neck masses Lungs-cta b/l no wheezing or crackles Heart-s1 and s2 heard regular rate and rhythm no murmurs Abdomen-soft bowel sounds present non tender no distension Extremities-no erythema Neuro-alert and awake moves extremities Lab data as noted below. ASSESSMENT & PLAN: 71 yoM with Lewy Body dementia, Parkinson's Disease and possible progressive supranuclear palsy who presented after multiple mechanical falls at home. Was evaluated by psychiatry for reports of suicidal ideations and hallucinations in the context of a h/o depression without prior suicide attempts, a recent UTI for which he was taking antibiotics and also recently starting on Seroquel within the past 3 weeks. MULTIPLE MECHANICAL FALLS AT HOME- Parkinson's patient, dementia CT head negative Pt/ot recommends rehab placement office of aging inviolved. VITAMIN D INSUFFICIENCY: will replace DEPRESSION/ HALLUCINATIONS/ AGITATION RECENT SUICIDAL IDEATION Taking Zoloft since 2012 Zoloft increased to 100 mg on 11/28 with good result-awake, not sedated and interactive Seroquel am dose was discontinue / fatigue, cont 25mg qPM (recently added 3 weeks prior to admission per Dr Garay in Neuro) Psych recommended Nuplazid that is use in Parkinson patient with hallucination [place], [place] insurance will not approve for it- to try as out patient Cuyrently seem s stable To cont Seroquel and Zoloft. Awaiting placement to rehab PARKINSON'S VARI[employer] Sinemet increased to 1 1/2 tab QID on 11/26 per Neuro- improvement seen. To follow up with neuro once discharge from rehab LEWY BODY DEMENTIA On galantamine CONJUNCTIVITIS-improved on Trimpethoprim/Polymyxin drops in both eyes QID x 5 days. CONSTIPATION-on Miralax daily to assist with movement-hold for loose stools.Will monitor CODE STATUS Full code- Would not want prolonged life support. DVT PROPHYLAXIS Lovenox SQ. Disposition await rehab placement Vital Signs: Date Time Temp Pulse Resp B/P Pulse Ox O2 Delivery O2 Flow Rate FiO2 12/10/16 16:01 36.4 67 20 145/83 94 Room Air 12/10/16 16:00 96 Room Air 12/10/16 08:00 96 Room Air 12/10/16 06:49 36.6 51 16 143/71 96 Room Air 12/09/16 23:45 Room Air 12/09/16 23:18 36.6 64 16 128/73 96 Room Air
[2016-12-10] MEDS: QUETIAPINE FUMARATE 25 MG TAB PO SCH (20:03)
[2016-12-10] MEDS: ENOXAPARIN 40 MG/0.4 ML SYR SQ SCH (20:04)
[2016-12-11 08:15] VITALS: BP 129/76; PULSE 49; TEMP 36.8; O2SAT 96
[2016-12-11] MEDS: ASPIRIN 81 MG ECTAB PO SCH (08:50)
[2016-12-11] MEDS: SERTRALINE HCL 100 MG TAB PO SCH (08:50)
[2016-12-11] MEDS: POLYETHYLENE (MIRALAX) 17 GM PACK PO SCH (08:50)
[2016-12-11] MEDS: CYANOCOBALAMIN 500 MCG TAB (VIT B-12) PO SCH (08:50)
[2016-12-11] MEDS: THIAMINE HCL 100 MG TAB PO SCH (08:50)
[2016-12-11] MEDS: CARBIDOPA/LEVODOPA 25/100MG TAB PO SCH ×4 (08:51→19:52)
[2016-12-11 15:41] VITALS: BP 129/61; PULSE 52; TEMP 36.5; O2SAT 93
--- NOTE | 2016-12-11 18:51 | Progress Note ---
Internal Med Progress Note Date of Service: Dec 11, 2016. Provider Documentation: SUBJECTIVE: alert and awake denies any pain said had breakfast afebrile want to be discharged OBJECTIVE: Vital Signs-as noted below Exam: General-alert and awake ENT-normal hearing Neck-no neck masses Lungs-cta b/l no wheezing or crackles Heart-s1 and s2 heard regular rate and rhythm no murmurs Abdomen-soft bowel sounds present non tender no distension Extremities-no erythema Neuro-alert and awake moves extremities Lab data as noted below. ASSESSMENT & PLAN: 71 yoM with Lewy Body dementia, Parkinson's Disease and possible progressive supranuclear palsy who presented after multiple mechanical falls at home. Was evaluated by psychiatry for reports of suicidal ideations and hallucinations in the context of a h/o depression without prior suicide attempts, a recent UTI for which he was taking antibiotics and also recently starting on Seroquel within the past 3 weeks. MULTIPLE MECHANICAL FALLS AT HOME- Parkinson's patient, dementia CT head negative Pt/ot recommends rehab placement office of aging involved plan for SNF. VITAMIN D INSUFFICIENCY: will replace DEPRESSION/ HALLUCINATIONS/ AGITATION RECENT SUICIDAL IDEATION Taking Zoloft since 2012 Zoloft increased to 100 mg on 11/28 with good result-awake, not sedated and interactive Seroquel am dose was discontinue 2/2 fatigue, cont 25mg qPM (recently added 3 weeks prior to admission per Dr Garay in Neuro) Psych recommended Nuplazid that is use in Parkinson patient with hallucination Pt has the VA insurance, mostly insurance will not approve for it- to try as out patient Currently seem s stable To cont Seroquel and Zoloft. Awaiting placement PARKINSON'S VARIANT Sinemet increased to 1 1/2 tab QID on 11/26 per Neuro- improvement seen. To follow up with neuro once discharge from rehab LEWY BODY DEMENTIA On galantamine CONJUNCTIVITIS-improved on Trimpethoprim/Polymyxin drops in both eyes QID x 5 days. CONSTIPATION-on Miralax daily to assist with movement-hold for loose stools.Will monitor CODE STATUS Full code- Would not want prolonged life support. DVT PROPHYLAXIS Lovenox SQ. Disposition social service for d/c planning await placement Vital Signs: Date Time Temp Pulse Resp B/P Pulse Ox O2 Delivery O2 Flow Rate FiO2 12/11/16 16:06 Room Air 12/11/16 15:41 36.5 52 18 129/61 93 Room Air 12/11/16 08:20 Room Air 12/11/16 08:15 36.8 49 18 129/76 96 Room Air 12/10/16 23:15 Room Air
[2016-12-11] MEDS: QUETIAPINE FUMARATE 25 MG TAB PO SCH (19:52)
[2016-12-11] MEDS: ENOXAPARIN 40 MG/0.4 ML SYR SQ SCH (19:53)
[2016-12-11 23:45] VITALS: BP 151/85; PULSE 66; TEMP 36.5; O2SAT 95
[2016-12-12] VITALS: O2SAT 95
[2016-12-12 07:05] VITALS: BP 151/77; PULSE 54; TEMP 36.7; O2SAT 96
[2016-12-12] MEDS: ASPIRIN 81 MG ECTAB PO SCH (08:46)
[2016-12-12] MEDS: SERTRALINE HCL 100 MG TAB PO SCH (08:46)
[2016-12-12] MEDS: CARBIDOPA/LEVODOPA 25/100MG TAB PO SCH ×4 (08:46→20:25)
[2016-12-12] MEDS: THIAMINE HCL 100 MG TAB PO SCH (08:46)
[2016-12-12] MEDS: POLYETHYLENE (MIRALAX) 17 GM PACK PO SCH (08:46)
[2016-12-12] MEDS: CYANOCOBALAMIN 500 MCG TAB (VIT B-12) PO SCH (08:46)
[2016-12-12] MEDS: ERGOCALCIFEROL 50,000 INTER.UNIT CAP PO SCH (08:48)
[2016-12-12 14:43] VITALS: BP 136/75; PULSE 80; TEMP 36.7; O2SAT 93
--- NOTE | 2016-12-12 16:14 | Progress Note ---
Internal Med Progress Note Date of Service: Dec 12, 2016. Provider Documentation: SUBJECTIVE: alert and awake says ate breakfast but did not eat lunch yet denies any pain or sough says he was a week ago OBJECTIVE: Vital Signs-as noted below Exam: General-alert and awake ENT-normal hearing Neck-no neck masses Lungs-cta b/l no wheezing or crackles Heart-s1 and s2 heard regular rate and rhythm no murmurs Abdomen-soft bowel sounds present non tender no distension Extremities-no erythema Neuro-alert and awake moves extremities Lab data as noted below. ASSESSMENT & PLAN: 71 yoM with Lewy Body dementia, Parkinson's Disease and possible progressive supranuclear palsy who presented after multiple mechanical falls at home. Was evaluated by psychiatry for reports of suicidal ideations and hallucinations in the context of a h/o depression without prior suicide attempts, a recent UTI for which he was taking antibiotics and also recently starting on Seroquel within the past 3 weeks. MULTIPLE MECHANICAL FALLS AT HOME- Parkinson's patient, dementia CT head negative Pt/ot recommends rehab placement office of aging involved plan for [facility] patient should be fine to be discharged to [facility] . VITAMIN D INSUFFICIENCY: will replace DEPRESSION/ HALLUCINATIONS/ AGITATION RECENT SUICIDAL IDEATION Taking Zoloft since 2012 Zoloft increased to 100 mg on 11/28 with good result-awake, not sedated and interactive Seroquel am dose was discontinue 2/2 fatigue, cont 25mg qPM (recently added 3 weeks prior to admission per Dr Garay in Neuro) Psych recommended Nuplazid that is use in Parkinson patient with hallucination Pt has the VA insurance, mostly insurance will not approve for it- to try as out patient Currently seem s stable To cont Seroquel and Zoloft. Plan for [facility] f/u with psychiatry PARKINSON'S VARIANT Sinemet increased to 1 1/2 tab QID on 11/26 per Neuro- improvement seen. To follow up with neuro . LEWY BODY DEMENTIA On galantamine CONJUNCTIVITIS-improved on Trimpethoprim/Polymyxin drops in both eyes QID x 5 days. CONSTIPATION-on Miralax daily to assist with movement-hold for loose stools.Will monitor CODE STATUS Full code- Would not want prolonged life support. DVT PROPHYLAXIS Lovenox SQ. Disposition social service for d/c planning Plan for [facility] in am Vital Signs: Date Time Temp Pulse Resp B/P Pulse Ox O2 Delivery O2 Flow Rate FiO2 12/12/16 14:43 36.7 80 20 136/75 93 12/12/16 08:00 Room Air 12/12/16 07:05 36.7 54 18 151/77 96 Room Air 12/12/16 00:00 95 Room Air 12/11/16 23:45 36.5 66 20 151/85 95 Room Air
[2016-12-12] MEDS: ENOXAPARIN 40 MG/0.4 ML SYR SQ SCH (20:25)
[2016-12-12] MEDS: QUETIAPINE FUMARATE 25 MG TAB PO SCH (20:25)
[2016-12-12 22:54] VITALS: BP 134/73; PULSE 48; TEMP 36.4; O2SAT 96
[2016-12-13 07:09] VITALS: BP 129/70; PULSE 45; TEMP 37; O2SAT 96
[2016-12-13] MEDS: POLYETHYLENE (MIRALAX) 17 GM PACK PO SCH (09:09)
[2016-12-13] MEDS: ASPIRIN 81 MG ECTAB PO SCH (09:09)
[2016-12-13] MEDS: SERTRALINE HCL 100 MG TAB PO SCH (09:09)
[2016-12-13] MEDS: CARBIDOPA/LEVODOPA 25/100MG TAB PO SCH ×2 (09:09→12:30)
[2016-12-13] MEDS: CYANOCOBALAMIN 500 MCG TAB (VIT B-12) PO SCH (09:09)
[2016-12-13] MEDS: THIAMINE HCL 100 MG TAB PO SCH (09:09)
[2016-12-13 12:02] VITALS: BP 129/70; PULSE 45; TEMP 37; O2SAT 96
--- NOTE | 2016-12-13 12:26 | Psychiatric Progress Notes ---
Psychiatric Progress Note Date of Service Dec 13, 2016. Notes ID: Patient followed by liaison nurse. Initial consultation by EVE Siu dated 11/26/15 recommended increase Zoloft to assist with agitation. Patient was on Seroquel 50 mg at hs upon admission. Sinemet was increased by neurology and a provider wrote to add am dose of Seroquel. CC: "I pissed because I want out of here" HPI: speech remains soft at times but overall clearer, seems upset that he's "left" here, understands will be moving to another facility today, no combativeness noted and no longer responding to internal stimuli ROS: denies physical complaints MSE: again more facial expression than previous encounters, answered simple questions with less delay in response, better speech articulartion. No SI/HI/ abdi. Some irritability noted. Imp: parkinsons disease with lewbody dementia/delirium Plan: continue Seroquel hs, didn't tolerate daytime dosing. Zoloft increased during stay.
[2016-12-13] MEDS ORDERED: CHOL1000 PO (13:00)
[2016-12-13] MEDS ORDERED: SNM/25100 PO (13:00)
[2016-12-13] MEDS ORDERED: SERT1TAB92 PO (13:00)
--- NOTE | 2016-12-13 13:04 | Discharge Instructions ---
Discharge Instructions Admission Reason for Admission: Falls, Hallucinations Discharge Discharge Diagnosis / Problem: FALL, HALLUCINATIONS, DEMENTIA Discharge Goals Goal(s): Decrease discomfort, Improve function Activity Recommendations Activity Level: Assistance Required Therapies: Physical Therapy, Occupational Therapy . Additional Information Patient informed of condition: Yes (DEMENTIA) Advance Directives: Yes DNR: No Level of Care: Skilled Communicable Disease: No Prognosis: Stable Carney Catheter: No Instructions / Follow-Up Instructions / Follow-Up FOLLOWUP WITH FAMILY DOCTOR IN ONE WEEK FOLLOWUP WITH NEUROLOGY IN 2-3 WEEKS FOLLOWUP WITH PSYCHIATRY IN 2-3 WEEKS Current Hospital Diet Patient's current hospital diet: Regular Diet Discharge Diet Recommended Diet: Regular Diet Pending Studies Studies pending at discharge: no Physician Orders On Transfer Special Precautions: FALL AND ASPIRATION PRECAUTIONS Vital Signs: EVERY 8HRS Medical Emergencies . Who to Call and When: Medical Emergencies: If at any time you feel your situation is an emergency, please call 911 immediately. . Non-Emergent Contact Non-Emergency issues call your: Primary Care Provider . . "Provider Documentation" section prepared by Vern Ramos. Core Measure Problem Core Measures: None
--- NOTE | 2016-12-13 18:10 | Progress Note ---
Internal Med Progress Note Date of Service: Dec 13, 2016. Provider Documentation: SUBJECTIVE: alert and awake denies any pain afebrile has dementia OBJECTIVE: Vital Signs-as noted below Exam: General-alert and awake ENT-normal hearing Neck-no neck masses Lungs-cta b/l no wheezing or crackles Heart-s1 and s2 heard regular rate and rhythm no murmurs Abdomen-soft bowel sounds present non tender no distension Extremities-no erythema Neuro-alert and awake moves extremities Lab data as noted below. ASSESSMENT & PLAN: 71 yoM with Lewy Body dementia, Parkinson's Disease and possible progressive supranuclear palsy who presented after multiple mechanical falls at home. Was evaluated by psychiatry for reports of suicidal ideations and hallucinations in the context of a h/o depression without prior suicide attempts, a recent UTI for which he was taking antibiotics and also recently starting on Seroquel within the past 3 weeks. MULTIPLE MECHANICAL FALLS AT HOME- Parkinson's patient, dementia CT head negative Pt/ot recommends rehab placement office of aging involved plan for [facility] patient discharged to [facility] today VITAMIN D INSUFFICIENCY: will replace DEPRESSION/ HALLUCINATIONS/ AGITATION RECENT SUICIDAL IDEATION Taking Zoloft since 2012 Zoloft increased to 100 mg on 11/28 with good result-awake, not sedated and interactive Seroquel am dose was discontinue 2/2 fatigue, cont 25mg qPM (recently added 3 weeks prior to admission per Dr Garay in Neuro) Psych recommended Nuplazid that is use in Parkinson patient with hallucination Pt has the VA insurance, mostly insurance will not approve for it- to try as out patient Currently seem s stable To cont Seroquel and Zoloft. Discharged to [facility] f/u with psychiatry PARKINSON'S VARIANT Sinemet increased to 1 1/2 tab QID on 11/26 per Neuro- improvement seen. To follow up with neuro . LEWY BODY DEMENTIA On galantamine CONJUNCTIVITIS-improved on Trimpethoprim/Polymyxin drops in both eyes QID x 5 days. CONSTIPATION-on Miralax daily to assist with movement-hold for loose stools.Will monitor Discharged to [facility] Vital Signs:
--- NOTE | 2016-12-19 12:12 | Discharge Summary ---
Discharge Summary Admission Date: Nov 28, 2016 at 20:24 Discharge Date: Dec 13, 2016 [facility]charge Disposition: [facility] facility Principal Diagnosis: MULTIPLE MECHANICAL FALLS HALLUCINATIONS/AGITATIONS/PARKINSON'S DISEASE Secondary Diagnoses/Problems: 1) Depression Status: Chronic (2) History of DVT (deep vein thrombosis) Permanent Comment: provoked by surgery Status: Chronic (3) History of pulmonary embolism Permanent Comment: provoked by surgery Status: Chronic (4) Lewy body dementia Status: Chronic Procedures: RIGHT SHOULDER XRAY: Equivocal minimally displaced scapular fracture involving the coracoid process. This may be artifactual. CT HEAD: There is no hemorrhage, mass effect, or evidence of acute territorial ischemia by CT criteria. CT OF CERVICAL SPINE: No evidence of acute fracture or traumatic subluxation. RIGHT ANKLE XRAY: 1. No acute fracture or dislocation of the right ankle. 2. Moderate lateral ankle soft tissue swelling. CHEST XRAY: Cardiomegaly with no acute cardiopulmonary abnormality. CT OF RIGHT SHOULDER: Moderate degenerative change. No acute bony abnormality. Routine film finding appears to be secondary to overlap artifact. Consultations: psych neuro PT/OT Medication Reconciliation New Medications: Cholecalciferol (Vitamin D3) 1,000 Unit Tab 1 TAB PO DAILY for 30 Days, #30 TAB 5 Refills Levodopa/Carbidopa (Sinemet 25MG/100MG) 1 Ea Tab 1.5 TAB PO QID for 30 Days, #180 TAB 2 Refills Sertraline HCl (Sertraline HCl) 100 Mg Tab 100 MG PO QAM, #30 TAB 2 Refills Continued Medications: Aspirin (Aspirin Ec) 81 Mg Tab 81 MG PO QAM Cyanocobalamin (Vitamin B-12 1000 Mcg) 1,000 Mcg Tab 1000 MCG PO DAILY, TAB Galantamine Hydrobromide (Razadyne) 4 Mg Tab 4 MG PO HS, TAB Lactic Acid (Ammonium Lactate) (Amlactin) 12 % Lot 1 APPLN EXT BID PRN for DRYNESS Quetiapine Fumarate (Seroquel) 25 Mg Tab 25 MG PO HS, TAB Thiamine Hcl (Vitamin B-1) 100 Mg Tab 100 MG PO DAILY, TAB Discontinued Medications: Carbidopa/Levodopa (Sinemet 25MG/100MG) Tab 1 TAB PO QID, TAB Sertraline (Zoloft) 50 Mg Tab 50 MG PO DAILY, TAB Admission Information HPI (per Admitting provider): This is a 71 year old male with PMH of Parkinson's variant, possibly progressive supranuclear palsy, Lewy body dementia, depression, and other problems listed below who presents to the ED for multiple falls. Patient's daughter at bedside states patient fell 4x in past 1 week. He fell on 11/19 witnessed by his daughter due to his chair giving out under him and hit the back of his head. He then fell once yesterday and 2x early this morning. Patient unable to describe what happened. Daughter did not witness these falls. Pt ambulates with cane or walker at home. He has been generally weak. After the recent falls he has pain in occipital head, right shoulder, right ankle. No other areas of pain. Daughter notes patient has been awake for past 36 hours. He has been having hallucinations of people in the room frequently during this time, while before this was only occasional. He has been agitated at times. He was having reportedly having suicidal ideations recently but denies this currently. As per his baseline patient has poor short term memory. At baseline he is oriented to person and date but not to place- no change. Patient states he is here because "my body is all screwed up". Daughter states he has been eating well at home but does not drink much fluids. No focal weakness, numbness , facial droop, change in speech- has baseline mumbling speech. Has intention tremor. No recent fever, chills, URI symptoms, chest pain, SOB, GI complaints. He recently finished amoxicillin for UTI on FridayNov 22. Not having urinary complaints over past few days. Seroquel 25 mg HS was recently added approx [address] Reed. Daughter called Dr. Reed today and was advised to present to ER. Physical Exam (per Admitting): General Appearance: WD/WN, no apparent distress Head: normocephalic, atraumatic Eyes: normal inspection, PERRL, EOMI ENT: hearing grossly normal, pharynx normal Neck: supple Respiratory/Chest: lungs clear, normal breath sounds, no respiratory distress Cardiovascular: regular rate, rhythm, no murmur Abdomen/GI: normal bowel sounds, non tender, soft Extremities/Musculoskelatal: no calf tenderness, no pedal edema, + pertinent finding (+ rigidity of extremities. + painful ROM of right shoulder and right ankle. ) Neurologic/Psych: alert, + pertinent finding (oriented to person and date, mildly disoriented to place (states we are at [facility]), attention is normal, short term memory is poor. has masked facies. eyebrow raise and smile symmetric. tremor with intentional movement. 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 generally weak in biliateral legs strenght 2-4/5. ) Skin: normal color, warm/dry, + pertinent finding (scabbed skin tear left elbow. no appreciable rashes or bruises. ) Hospital Course 71 yoM with Lewy Body dementia, Parkinson's Disease and possible progressive supranuclear palsy who presented after multiple mechanical falls at home. Was evaluated by psychiatry for reports of suicidal ideations and hallucinations in the context of a h/o depression without prior suicide attempts, a recent UTI for which he was taking antibiotics and also recently starting on Seroquel within the past 3 weeks. MULTIPLE MECHANICAL FALLS AT HOME- Parkinson's patient, dementia CT head negative Pt/ot recommends rehab placement office of aging involved plan for [facility] patient discharged to [facility] today VITAMIN D INSUFFICIENCY: will replace DEPRESSION/ HALLUCINATIONS/ AGITATION RECENT SUICIDAL IDEATION Taking Zoloft since 2012 Zoloft increased to 100 mg on 11/28 with good result-awake, not sedated and interactive Seroquel am dose was discontinue 2/2 fatigue, cont 25mg qPM (recently added 3 weeks prior to admission per Dr Garay in Neuro) Psych recommended Nuplazid that is use in Parkinson patient with hallucination Pt has the VA insurance, mostly insurance will not approve for it- to try as out patient Currently seem s stable To cont Seroquel and Zoloft. Discharged to [facility] f/u with psychiatry PARKINSON'S VARIANT Sinemet increased to 1 1/2 tab QID on 11/26 per Neuro- improvement seen. To follow up with neuro . LEWY BODY DEMENTIA On galantamine CONJUNCTIVITIS-improved on Trimpethoprim/Polymyxin drops in both eyes QID x 5 days. CONSTIPATION-on Miralax daily to assist with movement-hold for loose stools.Will monitor Discharged to [facility] Total time spent on discharge = 40MINUTES This includes examination of the patient, discharge planning, medication reconciliation, and communication with other providers. Discharge Instructions Please take this sheet to every appointment for the next month Discharge Instructions Admission Reason for Admission: Falls, Hallucinations Discharge Discharge Diagnosis / Problem: FALL, HALLUCINATIONS, DEMENTIA Discharge Goals Goal(s): Decrease discomfort, Improve function Activity Recommendations Activity Level: Assistance Required Therapies: Physical Therapy, Occupational Therapy . Additional Information Patient informed of condition: Yes (DEMENTIA) Advance Directives: Yes DNR: No Level of Care: Skilled Communicable Disease: No Prognosis: Stable Carney Catheter: No Instructions / Follow-Up Instructions / Follow-Up FOLLOWUP WITH FAMILY DOCTOR IN ONE WEEK FOLLOWUP WITH NEUROLOGY IN 2-3 WEEKS FOLLOWUP WITH PSYCHIATRY IN 2-3 WEEKS Current Hospital Diet Patient's current hospital diet: Regular Diet Discharge Diet Recommended Diet: Regular Diet Pending Studies Studies pending at discharge: no Physician Orders On Transfer Special Precautions: FALL AND ASPIRATION PRECAUTIONS Vital Signs: EVERY 8HRS Medical Emergencies . Who to Call and When: Medical Emergencies: If at any time you feel your situation is an emergency, please call 911 immediately. . Non-Emergent Contact Non-Emergency issues call your: Primary Care Provider . . "Provider Documentation" section prepared by Vern Ramos. Core Measure Problem Core Measures: None
== END 2016-12-13 14:20 | DRG 92 ==
LOC: ENRESERVDT → ENRESERVTM → EDBD 13:33 → C.EDC 13:34 → C.MS2W 17:17 → OBSVTOIN 11-28 20:24 → C.MS2W 12-05 22:21
PROVIDERS: ADMIT Internal Medicine; ATTEND Internal Medicine
DX: R29.6 Repeated falls (principal); N39.0 Urinary tract infection, site not specified; G23.1 Progressive supranuclear ophthalmoplegia [Steele-Richardson-Olszewski]; R45.851 Suicidal ideations; R44.3 Hallucinations, unspecified; G90.3 Multi-system degeneration of the autonomic nervous system; G31.83 Neurocognitive disorder with Lewy bodies; F32.9 Major depressive disorder, single episode, unspecified; H10.9 Unspecified conjunctivitis; R00.1 Bradycardia, unspecified; E53.8 Deficiency of other specified B group vitamins; R53.1 Weakness; K59.00 Constipation, unspecified; R45.850 Homicidal ideations; M19.90 Unspecified osteoarthritis, unspecified site; R26.89 Other abnormalities of gait and mobility; Z98.1 Arthrodesis status; Z79.82 Long term (current) use of aspirin; Z87.891 Personal history of nicotine dependence; Z86.718 Personal history of other venous thrombosis and embolism; Z79.899 Other long term (current) drug therapy